=== PATIENT | male | born 1965 | race Caucasian/White ===

== ENCOUNTER 2017-08-11 12:36 | Inpatient (IN) | payer BC, OTHER ==
[2017-08-11] MEDS ORDERED: Diltiazem IV* 5 MG/ML 5 ML VIAL (for loading dose/IV Push) (25 MG) IV SLOW PU ONE (13:06)
[2017-08-11] MEDS: NS 0.9% 1000 ML* 2,000 ML IV ONE ×2 (13:13→14:02)
[2017-08-11 13:20] LABS: Hematocrit 43 % (42-52); Mean Corpuscular HGB Conc 35 g/dl (31-36); Mean Corpuscular Hemoglobin 36 pg (27-31); Mean Corpuscular Volume 102 fL (80-94); Mean Platelet Volume 7 um3 (7.4-10.4); Red Blood Count 4.22 10^6/ul (4.0-5.4); Red Cell Distribution Width 12 % (10.5-15); White Blood Count 6.6 10^3/ul (3.5-10.8)
[2017-08-11 13:30] LABS: Urine Bilirubin Negative (Negative); Urine Glucose Negative (Negative); Urine Nitrite Negative (Negative)
[2017-08-11 13:35] LABS: ALT 41 U/L (7-52); AST 97 U/L (13-39); Albumin 4.1 g/dL (3.2-5.2); Alkaline Phosphatase 63 U/L (34-104); Anion Gap 11 mmol/L (2-11); BUN/Creatinine Ratio 11.6 (8-20); Blood Urea Nitrogen 8 mg/dL (6-24); CO2 Carbon Dioxide 24 mmol/L (22-32); Calcium 9.3 mg/dL (8.6-10.3); Chloride 92 mmol/L (101-111); Creatine Kinase 37 U/L (10-223); EGFR African American 156.1 (>60); EGFR Non-African American 121.4 (>60); Globulin 4.1 g/dL (2-4); Glucose 95 mg/dL (70-100); Lipase 43 U/L (11.0-82.0); Magnesium 1.9 mg/dL (1.9-2.7); Potassium 3.8 mmol/L (3.5-5.0); Sodium 127 mmol/L (133-145); Total Protein 8.2 g/dL (6.4-8.9)
--- NOTE | 2017-08-11 13:37 | RAD ---
HISTORY: Tachycardia COMPARISONS: None VIEWS: 1: frontal portable view of the chest at 1:15 PM FINDINGS: LINES AND TUBES: None. CARDIOMEDIASTINAL SILHOUETTE: The cardiomediastinal silhouette is normal for portable technique. PLEURA: The costophrenic angles are sharp. No pleural abnormalities are noted. LUNG PARENCHYMA: The lungs are clear. ABDOMEN: The upper abdomen is clear. There is no subphrenic gas. BONES AND SOFT TISSUES: No bone or soft tissue abnormalities are noted. IMPRESSION: NO ACTIVE CARDIOPULMONARY DISEASE.
[2017-08-11 13:40] LABS: Acetaminophen < 15 mcg/mL; Alcohol 120 mg/dL (<10)
[2017-08-11 13:54] LABS: TSH (Thyroid Stimulating Horm) 4.24 mcIU/mL (0.34-5.60)
[2017-08-11] MEDS ORDERED: Magnesium Sulfate 2 GM IV* 2 GM/50 ML BAG IVPB ONE (14:29)
[2017-08-11] MEDS ORDERED: Potassium Chlor TAB* 20 MEQ TAB.ER PO ONE (14:29)
[2017-08-11] MEDS ORDERED: Thiamine IV* 100 MG/ML 2 ML VIAL IM ONE (14:43)
[2017-08-11] MEDS ORDERED: Acetaminophen TAB* 325 MG PO PRN (14:43)
[2017-08-11] MEDS ORDERED: Metoprolol Tartrate IV* 1 MG/ML 5 ML VIAL IV ONE (14:43)
[2017-08-11] MEDS ORDERED: LORazepam TAB(*) 1 MG PO SCH (15:00)
[2017-08-11] MEDS: NS 0.9% 1000 ML* 1,000 ML IV SCH (16:53)
[2017-08-11] MEDS: Metoprolol Tartrate TAB* 25 MG PO SCH ×2 (16:53→21:25)
--- NOTE | 2017-08-11 18:06 | ED ---
Chris Lund Angela, scribed for Juan Rousseau MD on 08/11/17 at 1308 . Palpitations / Dysrhythmia - HPI Summary HPI Summary: This pt is a 52 y/o male presenting to [facility] referred by his PCP for atrial fibrillation. Pt reports he was at his PCP's office (Dr. Jeffrey) for a physical exam and was noted to have atrial fibrillation. Additionally pt has had a couple of episodes in the past where he has passed out with activity. Pt has a history of multiple syncopal episodes, the last one was 1 week ago and the one prior that was on July 10, while on exertion. Today, pt got a tetanus shot on his right arm and began to have tremors after. Currently pt denies chest pain , light-headedness, SOB. Pt denies being on any medications. - History of Current Complaint Chief Complaint: EDDysrhythmPalp Time Seen by Provider: 08/11/17 12:55 Hx Obtained From: Patient Onset/Duration: Lasting Hours, Still Present Timing: Constant Severity Currently: Moderate Character: Irregular Associated Signs & Symptoms: Negative - Allergy/Home Medications Home Medications: Home Medications NK [No Home Medications Reported] 08/11/17 [History Confirmed 08/11/17] PMH/Surg Hx/FS Hx/Imm Hx Endocrine/Hematology History: Denies: Hx Diabetes Cardiovascular History: Denies: Hx Hypertension Psychiatric History: Reports: Hx Substance Abuse - alcohol Infectious Disease History: No Infectious Disease History: Denies: Traveled Outside the [place] in Last 30 Days - Family History Known Family History: Positive: Hypertension, Diabetes - Social History Alcohol Use: Daily Substance Use Type: Reports: None Smoking Status (MU): Heavy Every Day Tobacco Smoker Review of Systems Constitutional: Other - tremors Negative: Fever, Chills Cardiovascular: Other - atrial fibrillation Negative: Chest Pain Negative: Shortness Of Breath Neurological: Other - NEG: light-headedness All Other Systems Reviewed And Are Negative: Yes Physical Exam - Summary Physical Exam Summary: General: well-appearing, no pain distress Skin: warm, color reflects adequate perfusion, dry Head: normal Eyes: EOMI, SANJIV ENT: normal Neck: supple, nontender Respiratory: CTA, breath sounds present Cardiovascular: Tachycardic, irregularly irregular rhythm Abdomen: soft, nontender Bowel: present Musculoskeletal: normal, strength/ROM intact. Full body shaking with mild tremor. Neurological: normal, sensory/motor intact, A&O x3, appropriate Psychological: affect/mood appropriate Triage Information Reviewed: Yes Vital Signs On Initial Exam: Initial Vitals Temp Pulse Resp BP Pulse Ox 97.7 F 119 20 175/90 97 08/11/17 12:42 08/11/17 12:42 08/11/17 12:42 08/11/17 12:42 08/11/17 12:42 Vital Signs Reviewed: Yes Diagnostics - Vital Signs Vital Signs Temp Pulse Resp BP Pulse Ox 08/11/17 12:42 97.7 F 119 20 175/90 97 - Laboratory Lab Results: Lab Results 08/11/17 08/11/17 08/11/17 Range/Units 12:52 12:52 12:52 WBC (3.5-10.8) 10^3/ul RBC (4.0-5.4) 10^6/ul Hgb (14.0-18.0) g/dl Hct (42-52) % MCV (80-94) fL MCH (27-31) pg MCHC (31-36) g/dl RDW (10.5-15) % Plt Count (150-450) 10^3/ul MPV (7.4-10.4) um3 Neut % (Auto) (38-83) % Lymph % (Auto) (25-47) % [place] % (Auto) (1-9) % Eos % (Auto) (0-6) % Baso % (Auto) (0-2) % Absolute Neuts (auto) (1.5-7.7) 10^3/ul Absolute Lymphs (auto) (1.0-4.8) 10^3/ul Absolute Monos (auto) (0-0.8) 10^3/ul Absolute Eos (auto) (0-0.6) 10^3/ul Absolute Basos (auto) (0-0.2) 10^3/ul Absolute Nucleated RBC 10^3/ul Nucleated RBC % INR (Anticoag Therapy) 0.94 (0.77-1.02) APTT 32.7 (26.0-36.3) seconds D-Dimer, Quantitative < 200 (Less Than 230) ng/mL Sodium 127 L (133-145) mmol/L Potassium 3.8 (3.5-5.0) mmol/L Chloride 92 L (101-111) mmol/L Carbon Dioxide 24 (22-32) mmol/L Anion Gap 11 (2-11) mmol/L BUN 8 (6-24) mg/dL Creatinine 0.69 (0.67-1.17) mg/dL Est GFR ( Amer) 156.1 (>60) Est GFR (Non-Af Amer) 121.4 (>60) BUN/Creatinine Ratio 11.6 (8-20) Glucose 95 (70-100) mg/dL Lactic Acid (0.5-2.0) mmol/L Calcium 9.3 (8.6-10.3) mg/dL Magnesium 1.9 (1.9-2.7) mg/dL Total Bilirubin 1.10 H (0.2-1.0) mg/dL AST 97 H (13-39) U/L ALT 41 (7-52) U/L Alkaline Phosphatase 63 (34-104) U/L Ammonia (16-53) mol/L Total Creatine Kinase 37 (10-223) U/L CK-MB (CK-2) 1.2 (0.6-6.3) ng/mL Troponin I 0.00 (<0.04) ng/mL C-Reactive Protein 1.60 (< 5.00) mg/L B-Natriuretic Peptide 147 H ( - 100) pg/mL Total Protein 8.2 (6.4-8.9) g/dL Albumin 4.1 (3.2-5.2) g/dL Globulin 4.1 H (2-4) g/dL Albumin/Globulin Ratio 1.0 (1-3) Lipase 43 (11.0-82.0) U/L TSH 4.24 (0.34-5.60) mcIU/mL Urine Color Urine Appearance Urine pH (5-9) Ur Specific [place] (1.010-1.030) Urine Protein (Negative) Urine Ketones (Negative) Urine Blood (Negative) Urine Nitrate (Negative) Urine Bilirubin (Negative) Urine Urobilinogen (Negative) Ur Leukocyte Esterase (Negative) Urine Glucose (Negative) Acetaminophen < 15 mcg/mL Serum Alcohol 120 H (<10) mg/dL 12/11/17 12/11/17 12/11/17 Range/Units 12:52 12:52 12:52 WBC 6.6 (3.5-10.8) 10^3/ul RBC 4.22 (4.0-5.4) 10^6/ul Hgb 15.0 (14.0-18.0) g/dl Hct 43 (42-52) % MCV 102 H (80-94) fL MCH 36 H (27-31) pg MCHC 35 (31-36) g/dl RDW 12 (10.5-15) % Plt Count 183 (150-450) 10^3/ul MPV 7 L (7.4-10.4) um3 Neut % (Auto) 60.1 (38-83) % Lymph % (Auto) 20.3 L (25-47) % [place] % (Auto) 15.4 H (1-9) % Eos % (Auto) 2.3 (0-6) % Baso % (Auto) 1.9 (0-2) % Absolute Neuts (auto) 3.9 (1.5-7.7) 10^3/ul Absolute Lymphs (auto) 1.3 (1.0-4.8) 10^3/ul Absolute Monos (auto) 1.0 H (0-0.8) 10^3/ul Absolute Eos (auto) 0.1 (0-0.6) 10^3/ul Absolute Basos (auto) 0.1 (0-0.2) 10^3/ul Absolute Nucleated RBC 0.01 10^3/ul Nucleated RBC % 0.1 INR (Anticoag Therapy) (0.77-1.02) APTT (26.0-36.3) seconds D-Dimer, Quantitative (Less Than 230) ng/mL Sodium (133-145) mmol/L Potassium (3.5-5.0) mmol/L Chloride (101-111) mmol/L Carbon Dioxide (22-32) mmol/L Anion Gap (2-11) mmol/L BUN (6-24) mg/dL Creatinine (0.67-1.17) mg/dL Est GFR ( Amer) (>60) Est GFR (Non-Af Amer) (>60) BUN/Creatinine Ratio (8-20) Glucose (70-100) mg/dL Lactic Acid 1.8 (0.5-2.0) mmol/L Calcium (8.6-10.3) mg/dL Magnesium (1.9-2.7) mg/dL Total Bilirubin (0.2-1.0) mg/dL AST (13-39) U/L ALT (7-52) U/L Alkaline Phosphatase (34-104) U/L Ammonia (16-53) mol/L Total Creatine Kinase (10-223) U/L CK-MB (CK-2) (0.6-6.3) ng/mL Troponin I (<0.04) ng/mL C-Reactive Protein (< 5.00) mg/L B-Natriuretic Peptide ( - 100) pg/mL Total Protein (6.4-8.9) g/dL Albumin (3.2-5.2) g/dL Globulin (2-4) g/dL Albumin/Globulin Ratio (1-3) Lipase (11.0-82.0) U/L TSH (0.34-5.60) mcIU/mL Urine Color Straw Urine Appearance Clear Urine pH 6.0 (5-9) Ur Specific [place] 1.009 L (1.010-1.030) Urine Protein Negative (Negative) Urine Ketones Negative (Negative) Urine Blood Negative (Negative) Urine Nitrate Negative (Negative) Urine Bilirubin Negative (Negative) Urine Urobilinogen Negative (Negative) Ur Leukocyte Esterase Negative (Negative) Urine Glucose Negative (Negative) Acetaminophen mcg/mL Serum Alcohol (<10) mg/dL 08/11/17 Range/Units 13:48 WBC (3.5-10.8) 10^3/ul RBC (4.0-5.4) 10^6/ul Hgb (14.0-18.0) g/dl Hct (42-52) % MCV (80-94) fL MCH (27-31) pg MCHC (31-36) g/dl RDW (10.5-15) % Plt Count (150-450) 10^3/ul MPV (7.4-10.4) um3 Neut % (Auto) (38-83) % Lymph % (Auto) (25-47) % [place] % (Auto) (1-9) % Eos % (Auto) (0-6) % Baso % (Auto) (0-2) % Absolute Neuts (auto) (1.5-7.7) 10^3/ul Absolute Lymphs (auto) (1.0-4.8) 10^3/ul Absolute Monos (auto) (0-0.8) 10^3/ul Absolute Eos (auto) (0-0.6) 10^3/ul Absolute Basos (auto) (0-0.2) 10^3/ul Absolute Nucleated RBC 10^3/ul Nucleated RBC % INR (Anticoag Therapy) (0.77-1.02) APTT (26.0-36.3) seconds D-Dimer, Quantitative (Less Than 230) ng/mL Sodium (133-145) mmol/L Potassium (3.5-5.0) mmol/L Chloride (101-111) mmol/L Carbon Dioxide (22-32) mmol/L Anion Gap (2-11) mmol/L BUN (6-24) mg/dL Creatinine (0.67-1.17) mg/dL Est GFR ( Amer) (>60) Est GFR (Non-Af Amer) (>60) BUN/Creatinine Ratio (8-20) Glucose (70-100) mg/dL Lactic Acid (0.5-2.0) mmol/L Calcium (8.6-10.3) mg/dL Magnesium (1.9-2.7) mg/dL Total Bilirubin (0.2-1.0) mg/dL AST (13-39) U/L ALT (7-52) U/L Alkaline Phosphatase (34-104) U/L Ammonia 77 H (16-53) mol/L Total Creatine Kinase (10-223) U/L CK-MB (CK-2) (0.6-6.3) ng/mL Troponin I (<0.04) ng/mL C-Reactive Protein (< 5.00) mg/L B-Natriuretic Peptide ( - 100) pg/mL Total Protein (6.4-8.9) g/dL Albumin (3.2-5.2) g/dL Globulin (2-4) g/dL Albumin/Globulin Ratio (1-3) Lipase (11.0-82.0) U/L TSH (0.34-5.60) mcIU/mL Urine Color Urine Appearance Urine pH (5-9) Ur Specific [place] (1.010-1.030) Urine Protein (Negative) Urine Ketones (Negative) Urine Blood (Negative) Urine Nitrate (Negative) Urine Bilirubin (Negative) Urine Urobilinogen (Negative) Ur Leukocyte Esterase (Negative) Urine Glucose (Negative) Acetaminophen mcg/mL Serum Alcohol (<10) mg/dL Result Diagrams: 08/11/17 12:52 08/11/17 12:52 Lab Statement: Any lab studies that have been ordered have been reviewed, and results considered in the medical decision making process. - Radiology Chest XR Xray Interpretation: No Acute Changes - IMPRESSION: No active cardiopulmonary disease. Dr. Rousseau has reviewed this radiology report. Radiology Interpretation Completed By: Radiologist - EKG 1309 EKG Rhythm: Atrial Fibrillation - at [address] Segment: Normal Course/Dx - Course Course Of Treatment: Medications reviewed. Allergies noted. BP noted and advised to follow up with PCP. In the ED course, the pt was given IV fluids and IV cardizem. Test results show sodium of 127, AST of 97, BNP of 147. Urine toxicology reveals serum alcohol of 120. Chest XR shows no active cardiopulmonary disease. EKG shows atrial fibrillation at 118 bpm. Discussed the case with Dr. Padilla, hospitalist, who has agreed to admit the pt. NO CRITICAL CARE TIME. - Diagnoses Provider Diagnoses: Syncope, Afib - Physician Notifications Discussed Care Of Patient With: Lee Padilla Time Discussed With Above Provider: 13:53 Instructed by Provider To: Other - I discussed the pt's case with Dr. Padilla, who has agred to admit the pt. Discharge - Discharge Plan Condition: Stable Disposition: ADMITTED TO [facility] documentation as recorded by the Chris beckman Angela accurately reflects the service I personally performed and the decisions made by me, Juan Rousseau MD.
--- NOTE | 2017-08-11 18:52 | HP ---
HISTORY AND PHYSICAL: DATE OF ADMISSION: 08/11/17 PRIMARY CARE PROVIDER: Dr. Armando Jeffrey. ATTENDING PHYSICIAN: Dr. Charles Padilla * (dictated by Jahaira Honeycutt NP). CHIEF COMPLAINT: Sent by doctor's office for irregular heart rate, possibly new atrial fibrillation. HISTORY OF PRESENT ILLNESS: Mr. Jiang is a 52-year-old male with no significant past medical history, who presented to the emergency room from Dr. Jeffrey's office where he presented for a routine physical to establish primary care provider. At that appointment, he was noted to have an irregular heart rate and an EKG was performed showing an atrial fibrillation. The patient also received a tetanus shot, with which, reportedly, he developed upper body tremors afterwards. The patient denies any recent fever chills, chest pain, palpitations, cough, shortness of breath, nausea, vomiting, diarrhea. He reports intermittent dizziness. He denies urinary symptoms. Again, the stated tremors developed after he received a tetanus shot earlier today. The patient reports on 07/10/17, he had a syncopal episode at work. He noted on that day though he had not eaten any lunch and that he intermittently, for years, has had syncopal episodes with exertion. One week ago, with his father, at a , he became red in the face and collapsed. He denies loss of consciousness at that time. The patient states that his last alcoholic beverage was at 4:30 this morning. Again the patient presented to the emergency room from his primary care's office for concern for atrial fibrillation. While in the emergency room, the patient received diltiazem bolus and normal saline. He had labs significant for EtOH of 120 and magnesium of 1.9. His potassium was 3.8. He had a negative urinalysis. He had an EKG showing an atrial fibrillation, rate of 118. No previous EKGs for comparison. He had a chest x-ray showing no active cardiopulmonary disease. Hospitalists were asked to evaluate the patient for admission. PAST MEDICAL HISTORY: Syncope and alcohol abuse. PAST SURGICAL HISTORY: None. MEDICATIONS: None. ALLERGIES: He has no allergies. FAMILY HISTORY: The patient's father has a history of coronary artery disease and diabetes mellitus. The patient's sister with a history of coronary artery disease, peripheral vascular disease, cerebrovascular accident, and diabetes and the patient's mother had a history of diabetes mellitus and an unknown cancer. SOCIAL HISTORY: The patient denies tobacco or recreational drug use. He drinks 12 beers daily. 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 His brother, Serafin Jiang, will be his surrogate decision maker in the event he is unable to make decision for himself. REVIEW OF SYSTEMS: I performed a 14-point review of systems. All the pertinent positives and negatives are mentioned in the history of present illness. The remaining review of systems are negative. PHYSICAL EXAMINATION GENERAL APPEARANCE: The patient is alert, pleasant, and appears to be in no acute distress. VITAL SIGNS: Temperature 97.7, heart rate 99, respiratory rate 13, O2 sat 99% on room air, blood pressure 159/78. HEENT: Normocephalic, atraumatic. Pupils are equal and reactive to light. Extraocular movements are intact. RESPIRATORY: There is no accessory muscle use. The lungs are clear to auscultation bilaterally. CARDIOVASCULAR: Irregular rate and rhythm. S1, S2 present. There are no murmurs, rubs, or gallops heard. ABDOMEN: Soft, nontender, nondistended. There are bowel sounds present x4. EXTREMITIES: There is no lower extremity edema. DP and PT pulses were 2+ and symmetric. MUSCULOSKELETAL: There is no clubbing or cyanosis noted. The patient exhibits good strength in all extremities. The patient is noted to have tremors in his upper and lower extremities. NEUROLOGICAL: The patient is alert and oriented x4. Cranial nerves II through XII are grossly intact. PSYCHOLOGICAL: The patient is calm and cooperative. SKIN: There are no rashes or abnormalities seen. DIAGNOSTIC STUDIES/LABORATORY DATA: Sodium 127, potassium 3.8, chloride 92, CO2 of 24, BUN 8, creatinine 0.69, glucose 95. White blood cell count 6.6, hemoglobin 15.0, hematocrit 43, and platelet count 183. Serum alcohol 120, magnesium 1.9, total bilirubin 1.10, AST 97. Urinalysis is negative. EKG shows an atrial fibrillation with rate of 118. There were no acute signs of ischemia. There are no previous EKGs for comparison. Chest x-ray from today, radiologist's impression: No active cardiopulmonary disease. IMPRESSION: Mr. Jiang is a 52-year-old male with no significant past medical history, who presents to the emergency room from his primary care provider's office with atrial fibrillation. He will be admitted as an observation for atrial fibrillation and syncope. ASSESSMENT/PLAN: 1. Atrial fibrillation: It is unclear, if this is new or old for the patient as he has not followed up with a primary care provider in many years. He does not feel any chest pain or palpitations or racing of his heart. He received Cardizem bolus in the emergency room. His rate is currently in the 100s to one- teens. We can give the patient a bolus of IV metoprolol and then start him on p.o. metoprolol b.i.d. The patient has a CHADS-VASc2 score of 1 point for hypertension. He does not have a history of hypertension, but has been hypertensive while in the emergency room. For now, I am going to hold on any anticoagulation as the patient is at high risk for bleeding due to his history of syncope and falling. I am going to give the patient some magnesium and some potassium today to get him up to goal electrolytes of potassium greater than 4 and magnesium greater than 2, and after that I will get an EKG to evaluate for any valvular abnormalities. 2. Syncope: I am going to give the patient a liter of fluid overnight and then check an echocardiogram on him, do orthostatic vital signs. I suspect his syncopal episodes have been in the setting of dehydration. 3. Hypertension: The patient denies any history of hypertension. I have started him on metoprolol. We will hold on any further antihypertensives for now. 4. Alcohol abuse: The patient will be placed on the [facility] protocol. He reports drinking 12-pack a day. We will enter a social work consult to review his options for alcohol rehab if he is interested. 5. Fluids, electrolytes, and nutrition: Heart-healthy diet. 6. Code status: Full code. 7. DVT prophylaxis: The patient is at low risk and for now will be encouraged to ambulate. 8. Disposition: Observation. TIME SPENT: Time for this admission was approximately 60 minutes, greater than half of that was spent with the patient discussing medications, past medical history, the events leading up to his arrival today, and performing a physical examination. The case has been reviewed with the attending, Dr. Padilla, who agrees with the plan of care. JAHAIRA LEVI, STOCK FITTER [id number]/[facility] #: [id number] [facility] MEDICAL CENTERGregg
[2017-08-12] MEDS: NS 0.9% 1000 ML* 1,000 ML IV SCH (03:28)
[2017-08-12 06:05] LABS: BUN/Creatinine Ratio 10.9 (8-20); Blood Urea Nitrogen 7 mg/dL (6-24); CO2 Carbon Dioxide 25 mmol/L (22-32); Calcium 9.3 mg/dL (8.6-10.3); Chloride 91 mmol/L (101-111); EGFR African American 170.2 (>60); EGFR Non-African American 132.4 (>60); Glucose 86 mg/dL (70-100); Magnesium 2.2 mg/dL (1.9-2.7); Sodium 125 mmol/L (133-145)
[2017-08-12 06:08] LABS: Anion Gap 9 mmol/L (2-11)
[2017-08-12] MEDS: Metoprolol Tartrate TAB* 25 MG PO SCH (08:35)
[2017-08-12] MEDS: Folic Acid TAB* 1 MG PO SCH (08:37)
[2017-08-12] MEDS: Multivitamins/Minerals TAB PO SCH (08:37)
[2017-08-12] MEDS: Thiamine TAB* 100 MG TAB PO SCH (08:38)
[2017-08-12] MEDS ORDERED: Metoprolol Tartrate IV* 1 MG/ML 5 ML VIAL IV ONE (08:45)
[2017-08-12] MEDS: Metoprolol Tartrate TAB* 50 mg PO SCH ×2 (08:52→21:34)
--- NOTE | 2017-08-12 10:24 | PN ---
Subjective Date of Service: 08/12/17 Interval History: This is a 52 yo male with alcoholism who was referred to the ER from his PCP's office in rapid afib. Patient reports being asymptomatic. He was tremulous and admitted with new afib and acute alcohol withdrawal. This am, patient continues to deny CP, SOB, palpitations. He is still tremulous , no n/v or abd pain. He is interested in maintaining sobriety and would like to enroll in outpatient rehab following discharge. Objective Active Medications: Acetaminophen (Tylenol Tab*) 650 mg PO Q4H PRN PRN Reason: PAIN Folic Acid (Folvite Tab*) 1 mg PO DAILY [facility] Last Admin: 08/12/17 08:37 Dose: 1 mg Lorazepam (Ativan Tab(*)) 0 - [address] [facility] PROTOCOL [facility] PRN Reason: Protocol Last Admin: 08/11/17 21:52 Dose: 2 mg Metoprolol Tartrate (Lopressor Tab*) 50 mg PO BID [facility] Last Admin: 08/12/17 08:52 Dose: 50 mg Multivitamins/Minerals (Theragran/Minerals Tab*) 1 tab PO DAILY [facility] Last Admin: 08/12/17 08:37 Dose: 1 tab Nicotine Polacrilex (Nicotine Lozenge*) 4 mg MT Q2H PRN PRN Reason: CRAVINGS Thiamine HCl (Vitamin B-1 Tab*) 100 mg PO DAILY [facility] Last Admin: 08/12/17 08:38 Dose: 100 mg Vital Signs: Temp Pulse Resp BP Pulse Ox 98.4 F 95 16 138/92 100 08/12/17 07:39 08/12/17 07:39 08/12/17 08:00 08/12/17 07:39 08/12/17 07:39 Oxygen Devices in Use Now: None Appearance: Mildly tremulous 52 yo male in NAD Respiratory: Symmetrical Chest Expansion and Respiratory Effort, Clear to Auscultation Cardiovascular: NL Sounds; No Murmurs; No JVD, - - irregular Abdominal: NL Sounds; No Tenderness; No Distention Extremities: No Edema Skin: No Rash or Ulcers Neurological: Alert and Oriented x 3 Result Diagrams: 08/11/17 12:52 08/12/17 08:34 Additional Lab and Data: . Assess/Plan/Problems-Billing Assessment: This is a 52 yo male with alcoholism who presented with rapid afib and active withdrawal. - Patient Problems (1) Atrial fibrillation Comment: Resonably rate controlled, occasionally requiring IV push AV florentin blockers Echo pending Anticoagulation initially held, but patient is committed to sobriety, recommend starting NOAC at least in the short-term (2) Alcohol withdrawal Comment: Cont W[facility] protocol and prn lorazepam Mild tremulousness at this time, otherwise relatively asx Patient is interested in outpt treatment following dc SW consult pending (3) Hyponatremia Comment: Likely due to ETOH Asx Repeat BMP tomorrow (4) Full code status (5) DVT prophylaxis Comment: Start Xarelto Status and Disposition: Transition to inpatient. Anticipate 3-4d LOS to complete withdrawal.
--- NOTE | 2017-08-12 12:14 | PN ---
Progress Note - Progress Note Date of Service: 08/12/17 SOAP: Subjective: Mr. Garcia is a 52 yo male with a history of alcohol abuse and two recent syncopal episodes who presented to the ED from his PCP's office d/t an irregular heart rhythm and a new onset of tremors after receiving a tetanus shot. The patient was admitted for telemetry monitoring and rate control for Afib, as well as management of alcohol withdrawal. Today, the patient seems to be doing well and denies any symptoms. Denies CP, palpitations, chest pressure or tightness, SOB, wheezing, coughing, abdominal pain, N/V/D, and tremors. Objective: Vital Signs Temp Pulse Resp BP Pulse Ox 98.9 F 93 14 140/93 100 08/12/17 10:02 08/12/17 10:02 08/12/17 10:02 08/12/17 10:02 08/12/17 10:02 Laboratory Last Values WBC 6.6 10^3/ul (3.5-10.8) 08/11/17 12:52 RBC 4.22 10^6/ul (4.0-5.4) 08/11/17 12:52 Hgb 15.0 g/dl (14.0-18.0) 08/11/17 12:52 Hct 43 % (42-52) 08/11/17 12:52 MCV 102 fL (80-94) H 08/11/17 12:52 MCH 36 pg (27-31) H 08/11/17 12:52 MCHC 35 g/dl (31-36) 08/11/17 12:52 RDW 12 % (10.5-15) 08/11/17 12:52 Plt Count 183 10^3/ul (150-450) 08/11/17 12:52 MPV 7 um3 (7.4-10.4) L 08/11/17 12:52 Neut % (Auto) 60.1 % (38-83) 08/11/17 12:52 Lymph % (Auto) 20.3 % (25-47) L 08/11/17 12:52 [place] % (Auto) 15.4 % (1-9) H 08/11/17 12:52 Eos % (Auto) 2.3 % (0-6) 08/11/17 12:52 Baso % (Auto) 1.9 % (0-2) 08/11/17 12:52 Absolute Neuts (auto) 3.9 10^3/ul (1.5-7.7) 08/11/17 12:52 Absolute Lymphs (auto) 1.3 10^3/ul (1.0-4.8) 08/11/17 12:52 Absolute Monos (auto) 1.0 10^3/ul (0-0.8) H 08/11/17 12:52 Absolute Eos (auto) 0.1 10^3/ul (0-0.6) 08/11/17 12:52 Absolute Basos (auto) 0.1 10^3/ul (0-0.2) 08/11/17 12:52 Absolute Nucleated RBC 0.01 10^3/ul 08/11/17 12:52 Nucleated RBC % 0.1 08/11/17 12:52 INR (Anticoag Therapy) 0.94 (0.77-1.02) 08/11/17 12:52 APTT 32.7 seconds (26.0-36.3) 08/11/17 12:52 D-Dimer, Quantitative < 200 ng/mL (Less Than 230) 08/11/17 12:52 Sodium 125 mmol/L (133-145) L 08/12/17 05:03 Potassium 4.5 mmol/L (3.5-5.0) 08/12/17 08:34 Chloride 91 mmol/L (101-111) L 08/12/17 05:03 Carbon Dioxide 25 mmol/L (22-32) 08/12/17 05:03 Anion Gap 9 mmol/L (2-11) 08/12/17 05:03 BUN 7 mg/dL (6-24) 08/12/17 05:03 Creatinine 0.64 mg/dL (0.67-1.17) L 08/12/17 05:03 Est GFR ( Amer) 170.2 (>60) 08/12/17 05:03 Est GFR (Non-Af Amer) 132.4 (>60) 08/12/17 05:03 BUN/Creatinine Ratio 10.9 (8-20) 08/12/17 05:03 Glucose 86 mg/dL (70-100) 08/12/17 05:03 Lactic Acid 1.8 mmol/L (0.5-2.0) 08/11/17 12:52 Calcium 9.3 mg/dL (8.6-10.3) 08/12/17 05:03 Magnesium 2.2 mg/dL (1.9-2.7) 08/12/17 05:03 Total Bilirubin 1.10 mg/dL (0.2-1.0) H 08/11/17 12:52 AST 97 U/L (13-39) H 08/11/17 12:52 ALT 41 U/L (7-52) 08/11/17 12:52 Alkaline Phosphatase 63 U/L (34-104) 08/11/17 12:52 Ammonia 77 mol/L (16-53) H 08/11/17 13:48 Total Creatine Kinase 37 U/L (10-223) 08/11/17 12:52 CK-MB (CK-2) 1.2 ng/mL (0.6-6.3) 08/11/17 12:52 Troponin I 0.00 ng/mL (<0.04) 08/11/17 12:52 C-Reactive Protein 1.60 mg/L (< 5.00) 08/11/17 12:52 B-Natriuretic Peptide 147 pg/mL (-100) H 08/11/17 12:52 Total Protein 8.2 g/dL (6.4-8.9) 08/11/17 12:52 Albumin 4.1 g/dL (3.2-5.2) 08/11/17 12:52 Globulin 4.1 g/dL (2-4) H 08/11/17 12:52 Albumin/Globulin Ratio 1.0 (1-3) 08/11/17 12:52 Lipase 43 U/L (11.0-82.0) 08/11/17 12:52 TSH 4.24 mcIU/mL (0.34-5.60) 08/11/17 12:52 Urine Color Straw 08/11/17 12:52 Urine Appearance Clear 08/11/17 12:52 Urine pH 6.0 (5-9) 08/11/17 12:52 Ur Specific [place] 1.009 (1.010-1.030) L 08/11/17 12:52 Urine Protein Negative (Negative) 08/11/17 12:52 Urine Ketones Negative (Negative) 08/11/17 12:52 Urine Blood Negative (Negative) 08/11/17 12:52 Urine Nitrate Negative (Negative) 08/11/17 12:52 Urine Bilirubin Negative (Negative) 08/11/17 12:52 Urine Urobilinogen Negative (Negative) 08/11/17 12:52 Ur Leukocyte Esterase Negative (Negative) 08/11/17 12:52 Urine Glucose Negative (Negative) 08/11/17 12:52 Acetaminophen < 15 mcg/mL 08/11/17 12:52 Serum Alcohol 120 mg/dL (<10) H 08/11/17 12:52 Active Medications Acetaminophen (Tylenol Tab*) 650 mg PO Q4H PRN PRN Reason: PAIN Folic Acid (Folvite Tab*) 1 mg PO DAILY [facility] Last Admin: 08/12/17 08:37 Dose: 1 mg Lorazepam (Ativan Tab(*)) 0 - 6 mg PO .PER [facility] PROTOCOL [facility] PRN Reason: Protocol Last Admin: 08/11/17 21:52 Dose: 2 mg Metoprolol Tartrate (Lopressor Tab*) 50 mg PO BID [facility] Last Admin: 08/12/17 08:52 Dose: 50 mg Multivitamins/Minerals (Theragran/Minerals Tab*) 1 tab PO DAILY [facility] Last Admin: 08/12/17 08:37 Dose: 1 tab Nicotine Polacrilex (Nicotine Lozenge*) 4 mg MT Q2H PRN PRN Reason: CRAVINGS Rivaroxaban (Xarelto (*)) 20 mg PO DAILY [facility] Thiamine HCl (Vitamin B-1 Tab*) 100 mg PO DAILY [facility] Last Admin: 08/12/17 08:38 Dose: 100 mg General: WDWN male in NAD. HEENT: Moist and pink mucous membranes. CV: Regular rate, irregular rhythm, w/o MRG. Respiratory: CTA BL w/o RRW. GI: Abdomen is soft, non-distended and non-tender to palpation. Extremities: w/o edema Assessment: This is a 52 yo male with a history of alcohol abuse who has been admitted for rate control of atrial fibrillation and management of acute alcohol withdrawal. Plan: 1. Atrial Fibrillation: Rate is controlled with Lopressor. High risk patient for anticoagulation therapy d/t ETOH use and history of syncopal episodes. 2. Alcohol withdrawal: Ativan as needed, SW consult for outpatient rehab. 3. DVT Prophylaxis: Xarelto Disposition: Alcohol withdrawal treatment to be completed within 2-3 days.
[2017-08-12] MEDS: Rivaroxaban TAB(*) 20 MG TAB PO SCH (12:33)
--- NOTE | 2017-08-12 15:33 | ECHO ---
Patient: MERCEDES BAUTISTA [facility] Rec#: [id number] : 1965 Date: 08/12/2017 Age: 52y Height: 177.8 cm / 70.0 in Weight: 73 kg / 160.9 lbs Sex: M BSA: 1.9 Room#: [facility] Admit Date#: 08/11/2017 Type: Inpatient Referring: Camryn Smith NP Reading: Ambrosio Lea MD Boarding Room Fixer: Jody Kuo RN RDCS CC: Armando Jeffrey MD Transthoracic Echocardiogram Indication: Atrial fibrillation, syncope BP: 143/74 HR: 95 Rhythm: A-Fib Findings History: ETOH abuse, syncope Technical Comments: The study quality is fair. Completed at 0840. Left Ventricle: The left ventricular chamber size is normal. Mild concentric left ventricular hypertrophy is observed. Global left ventricular wall motion and contractility are within normal limits. Left ventricular systolic function is at the lower limits of normal. The estimated ejection fraction is 50-55%. The assessment of diastolic function is non-diagnostic. Left Atrium: The left atrial chamber size is normal. Right Ventricle: The right ventricle wall thickness is mildly increased. The right ventricular cavity size is normal. The right ventricular global systolic function is low normal. Right Atrium: The right atrial cavity size is normal. Aortic Valve: The aortic valve is trileaflet. The aortic valve leaflets are mildly thickened. There is no evidence of aortic regurgitation. There is no evidence of aortic stenosis. Mitral Valve: The mitral valve leaflets are mildly thickened. There is trace to mild mitral regurgitation. There is no evidence of mitral stenosis. Tricuspid Valve: The tricuspid valve leaflets are normal. There is trace tricuspid regurgitation. No pulmonary hypertension is noted. There is no tricuspid stenosis. Pulmonic Valve: The pulmonic valve appears normal. There is a trace pulmonic regurgitation. There is no pulmonic stenosis. Pericardium: There is no significant pericardial effusion. Aorta: There is no dilatation of the ascending aorta. The aortic arch is not well visualized. There is no dilation of the aortic root. Pulmonary Artery: The main pulmonary artery appears normal. Venous: The venous system is not well visualized. The inferior vena cava is not visualized. Conclusions Global left ventricular wall motion and contractility are within normal limits. Left ventricular systolic function is at the lower limits of normal. The estimated ejection fraction is 50-55%. The right ventricular global systolic function is low normal. There is no evidence of aortic stenosis. There is trace to mild mitral regurgitation. There is trace tricuspid regurgitation. No pulmonary hypertension is noted. There is no significant pericardial effusion. Measurements Name Value Normal Range RVDdMajor (2D) 3.5 cm (2.2 - 4.4) RVAW (2D) 0.8 cm (0.2 - 0.5) RAd ISD 4CH 4.7 cm (3.4 - 4.9) RA (A4C)W 4 cm (2.9 - 4.6) IVSd (2D) 1.2 cm (0.6 - 1) LVPWd (2D) 1.1 cm (0.6 - 1) LVIDd (2D) 4 cm (3.6 - 5.4) LVIDs (2D) 3 cm - LV FS (2D) 25 % (25 - 45) Aortic Annulus 2.1 cm (1.4 - 2.6) Ao root diameter (2D) 3.5 cm (2.1 - 3.5) Ascending Ao 3.4 cm (2.1 - 3.4) LA dimension (AP) 2D 3.5 cm (2.3 - 3.8) LAd ISD 4CH 5.1 cm (2.9 - 5.3) LA ISD 4CH W 4.3 cm (2.5 - 4.5) Name Value Normal Range LA ESV SP 4CH (A/L) 52 ml - LA ESV SP 2CH (A/L) 30 ml - LA ESV BP (A/L) 41 ml - LA ESV BP (A/L) index 21.7 ml/m2 - LA ESV SP 4CH (MOD) 49 ml - LA ESV SP 2CH (MOD) 29 ml - Name Value Normal Range MV E-wave Vmax 1.2 m/sec - MV deceleration time 111 msec - LV septal e' Vmax 0.09 m/sec - LV lateral e' Vmax 0.13 m/sec - LV E:e' septal ratio 13.3 ratio - LV E:e' lateral ratio 9.2 ratio - Name Value Normal Range AV Vmax 0.9 m/sec - AV VTI 15 cm - AV peak gradient 3.3 mmHg - AV mean gradient 1.9 mmHg - LVOT Vmax 0.91 m/sec - LVOT VTI 14.6 cm - LVOT peak gradient 3.3 mmHg - LVOT mean gradient 1.4 mmHg - Name Value Normal Range TR Vmax 2.2 m/sec - TR peak gradient 19 mmHg - RAP 8 mmHg - RVSP 27 mmHg - Name Value Normal Range PV Vmax 0.62 m/sec -
[2017-08-13 06:54] LABS: BUN/Creatinine Ratio 12.3 (8-20); Calcium 10.1 mg/dL (8.6-10.3); EGFR African American 167.2 (>60)
[2017-08-13] MEDS: Rivaroxaban TAB(*) 20 MG TAB PO SCH (08:33)
[2017-08-13] MEDS: Folic Acid TAB* 1 MG PO SCH (08:33)
[2017-08-13] MEDS: Metoprolol Tartrate TAB* 50 mg PO SCH ×2 (08:33→20:59)
[2017-08-13] MEDS: Multivitamins/Minerals TAB PO SCH (08:33)
[2017-08-13] MEDS: Thiamine TAB* 100 MG TAB PO SCH (08:33)
[2017-08-13] MEDS ORDERED: Pneumococcal *Vac Polyvalent 0.5 ML VIAL IM ONE (09:00)
--- NOTE | 2017-08-13 10:42 | PN ---
Progress Note - Progress Note Date of Service: 08/13/17 SOAP: Subjective: Mr. Garcia is a 52 yo male who has a history of alcohol abuse who came from his PCP's office d/t atrial fibrillation w/ RVR as well as tremors after receiving a tetanus shot. Today, patient states he feels well and expressed that he is eager to get out of the hospital. Patient denies all symptoms. Denies CP, palpitations, SOB, coughing, wheezing, abdominal pain, N/V/ D, tremors or anxiety. Objective: Vital Signs Temp Pulse Resp BP Pulse Ox 98.1 F 96 20 122/82 100 08/13/17 09:36 08/13/17 09:36 08/13/17 09:36 08/13/17 09:36 08/13/17 09:36 Laboratory Last Values WBC 6.6 10^3/ul (3.5-10.8) 08/11/17 12:52 RBC 4.22 10^6/ul (4.0-5.4) 08/11/17 12:52 Hgb 15.0 g/dl (14.0-18.0) 08/11/17 12:52 Hct 43 % (42-52) 08/11/17 12:52 MCV 102 fL (80-94) H 08/11/17 12:52 MCH 36 pg (27-31) H 08/11/17 12:52 MCHC 35 g/dl (31-36) 08/11/17 12:52 RDW 12 % (10.5-15) 08/11/17 12:52 Plt Count 183 10^3/ul (150-450) 08/11/17 12:52 MPV 7 um3 (7.4-10.4) L 08/11/17 12:52 Neut % (Auto) 60.1 % (38-83) 08/11/17 12:52 Lymph % (Auto) 20.3 % (25-47) L 08/11/17 12:52 [place] % (Auto) 15.4 % (1-9) H 08/11/17 12:52 Eos % (Auto) 2.3 % (0-6) 08/11/17 12:52 Baso % (Auto) 1.9 % (0-2) 08/11/17 12:52 Absolute Neuts (auto) 3.9 10^3/ul (1.5-7.7) 08/11/17 12:52 Absolute Lymphs (auto) 1.3 10^3/ul (1.0-4.8) 08/11/17 12:52 Absolute Monos (auto) 1.0 10^3/ul (0-0.8) H 08/11/17 12:52 Absolute Eos (auto) 0.1 10^3/ul (0-0.6) 08/11/17 12:52 Absolute Basos (auto) 0.1 10^3/ul (0-0.2) 08/11/17 12:52 Absolute Nucleated RBC 0.01 10^3/ul 08/11/17 12:52 Nucleated RBC % 0.1 08/11/17 12:52 INR (Anticoag Therapy) 0.94 (0.77-1.02) 08/11/17 12:52 APTT 32.7 seconds (26.0-36.3) 08/11/17 12:52 D-Dimer, Quantitative < 200 ng/mL (Less Than 230) 08/11/17 12:52 Sodium 125 mmol/L (133-145) L 08/13/17 05:43 Potassium 4.0 mmol/L (3.5-5.0) 08/13/17 05:43 Chloride 93 mmol/L (101-111) L 08/13/17 05:43 Carbon Dioxide 24 mmol/L (22-32) 08/13/17 05:43 Anion Gap 8 mmol/L (2-11) 08/13/17 05:43 BUN 8 mg/dL (6-24) 08/13/17 05:43 Creatinine 0.65 mg/dL (0.67-1.17) L 08/13/17 05:43 Est GFR ( Amer) 167.2 (>60) 08/13/17 05:43 Est GFR (Non-Af Amer) 130.0 (>60) 08/13/17 05:43 BUN/Creatinine Ratio 12.3 (8-20) 08/13/17 05:43 Glucose 94 mg/dL (70-100) 08/13/17 05:43 Lactic Acid 1.8 mmol/L (0.5-2.0) 08/11/17 12:52 Calcium 10.1 mg/dL (8.6-10.3) 08/13/17 05:43 Magnesium 2.0 mg/dL (1.9-2.7) 08/13/17 05:43 Total Bilirubin 1.10 mg/dL (0.2-1.0) H 08/11/17 12:52 AST 97 U/L (13-39) H 08/11/17 12:52 ALT 41 U/L (7-52) 08/11/17 12:52 Alkaline Phosphatase 63 U/L (34-104) 08/11/17 12:52 Ammonia 77 mol/L (16-53) H 08/11/17 13:48 Total Creatine Kinase 37 U/L (10-223) 08/11/17 12:52 CK-MB (CK-2) 1.2 ng/mL (0.6-6.3) 08/11/17 12:52 Troponin I 0.00 ng/mL (<0.04) 08/11/17 12:52 C-Reactive Protein 1.60 mg/L (< 5.00) 08/11/17 12:52 B-Natriuretic Peptide 147 pg/mL (-100) H 08/11/17 12:52 Total Protein 8.2 g/dL (6.4-8.9) 08/11/17 12:52 Albumin 4.1 g/dL (3.2-5.2) 08/11/17 12:52 Globulin 4.1 g/dL (2-4) H 08/11/17 12:52 Albumin/Globulin Ratio 1.0 (1-3) 08/11/17 12:52 Lipase 43 U/L (11.0-82.0) 08/11/17 12:52 TSH 4.24 mcIU/mL (0.34-5.60) 08/11/17 12:52 Urine Color Straw 08/11/17 12:52 Urine Appearance Clear 08/11/17 12:52 Urine pH 6.0 (5-9) 08/11/17 12:52 Ur Specific [place] 1.009 (1.010-1.030) L 08/11/17 12:52 Urine Protein Negative (Negative) 08/11/17 12:52 Urine Ketones Negative (Negative) 08/11/17 12:52 Urine Blood Negative (Negative) 08/11/17 12:52 Urine Nitrate Negative (Negative) 08/11/17 12:52 Urine Bilirubin Negative (Negative) 08/11/17 12:52 Urine Urobilinogen Negative (Negative) 08/11/17 12:52 Ur Leukocyte Esterase Negative (Negative) 08/11/17 12:52 Urine Glucose Negative (Negative) 08/11/17 12:52 Acetaminophen < 15 mcg/mL 08/11/17 12:52 Serum Alcohol 120 mg/dL (<10) H 08/11/17 12:52 Active Medications Acetaminophen (Tylenol Tab*) 650 mg PO Q4H PRN PRN Reason: PAIN Folic Acid (Folvite Tab*) 1 mg PO DAILY [facility] Last Admin: 08/13/17 08:33 Dose: 1 mg Lorazepam (Ativan Tab(*)) 0 - 6 mg PO .PER [facility] PROTOCOL [facility] PRN Reason: Protocol Last Admin: 08/11/17 21:52 Dose: 2 mg Metoprolol Tartrate (Lopressor Tab*) 50 mg PO BID [facility] Last Admin: 08/13/17 08:33 Dose: 50 mg Multivitamins/Minerals (Theragran/Minerals Tab*) 1 tab PO DAILY [facility] Last Admin: 08/13/17 08:33 Dose: 1 tab Nicotine Polacrilex (Nicotine Lozenge*) 4 mg MT Q2H PRN PRN Reason: CRAVINGS Rivaroxaban (Xarelto (*)) 20 mg PO DAILY [facility] Last Admin: 08/13/17 08:33 Dose: 20 mg Thiamine HCl (Vitamin B-1 Tab*) 100 mg PO DAILY [facility] Last Admin: 08/13/17 08:33 Dose: 100 mg General: WDWN male in NAD. HEENT: Moist and pink mucous membranes. CV: Irregular rhythm, regular rate w/o MRG. Respiratory: CTA BL w/o RRW. GI: Abdomen is soft, non-distended, and non-tender to palpation. Extremities: W/o edema. Assessment: This is a 52 yo male with a history of alcohol abuse who was admitted for Afib w/ RVR and management of acute alcohol withdrawal. [] Plan: 1. Atrial Fibrillation: Rate is controlled with Lopressor, in the 80s. As for anticoagulation therapy, the risks and benefits were discussed with the patient , and at this time, patient is interested in maintaining sobriety. Xarelto has been initiated. 2. Acute Alcohol Withdrawal: Ativan as needed, continue to monitor symptoms. Patient is asymptomatic at this time. 3. Hyponatremia: Still hyponatremic (125) today, however, asymptomatic. Continue to monitor. Disposition: Patient will likely be discharged in 1-2 days.
--- NOTE | 2017-08-13 11:35 | PN ---
Subjective Date of Service: 08/13/17 Interval History: Patient reports feeling well. His tremulousness has improved. No n/v. Appetite good. No CP, SOB, palpitations. Objective Active Medications: Acetaminophen (Tylenol Tab*) 650 mg PO Q4H PRN PRN Reason: PAIN Folic Acid (Folvite Tab*) 1 mg PO DAILY [facility] Last Admin: 08/13/17 08:33 Dose: 1 mg Lorazepam (Ativan Tab(*)) 0 - 6 mg PO .PER [facility] PROTOCOL [facility] PRN Reason: Protocol Last Admin: 08/11/17 21:52 Dose: 2 mg Metoprolol Tartrate (Lopressor Tab*) 50 mg PO BID [facility] Last Admin: 08/13/17 08:33 Dose: 50 mg Multivitamins/Minerals (Theragran/Minerals Tab*) 1 tab PO DAILY [facility] Last Admin: 08/13/17 08:33 Dose: 1 tab Nicotine Polacrilex (Nicotine Lozenge*) 4 mg MT Q2H PRN PRN Reason: CRAVINGS Rivaroxaban (Xarelto (*)) 20 mg PO DAILY [facility] Last Admin: 08/13/17 08:33 Dose: 20 mg Thiamine HCl (Vitamin B-1 Tab*) 100 mg PO DAILY [facility] Last Admin: 08/13/17 08:33 Dose: 100 mg Vital Signs: Temp Pulse Resp BP Pulse Ox 98.6 F 92 14 134/100 100 08/13/17 11:06 08/13/17 11:06 08/13/17 11:06 08/13/17 11:06 08/13/17 11:06 Oxygen Devices in Use Now: None Appearance: Well appearing, in NAD Respiratory: Symmetrical Chest Expansion and Respiratory Effort, Clear to Auscultation Cardiovascular: NL Sounds; No Murmurs; No JVD, - - irregular Extremities: No Edema Skin: No Rash or Ulcers Neurological: Alert and Oriented x 3, - - no tremor noted Result Diagrams: 08/11/17 12:52 08/13/17 05:43 Additional Lab and Data: . Assess/Plan/Problems-Billing Assessment: This is a 52 yo male with alcoholism who presented with rapid afib and active withdrawal. - Patient Problems (1) Atrial fibrillation Comment: Initial RVR Now rate controlled Asx Echo WNL Anticoagulation initially held, but patient is committed to sobriety, started Xarelto (2) Alcohol withdrawal Comment: Cont WAM protocol and prn lorazepam No benzos in ~24hrs Patient is interested in outpt treatment following dc SW consult pending (3) Hyponatremia Comment: Likely due to ETOH Asx Repeat BMP again tomorrow (4) Full code status (5) DVT prophylaxis Comment: Start Xarelto Status and Disposition: Transition to inpatient. Anticipate possible dc tomorrow if he remains asx overnight
[2017-08-13] MEDS: Nicotine Lozenge* 4 MG LOZENGE MT PRN ×2 (13:33→21:07)
[2017-08-14] MEDS: Thiamine TAB* 100 MG TAB PO SCH (07:50)
[2017-08-14] MEDS: Metoprolol Tartrate TAB* 50 mg PO SCH (07:50)
[2017-08-14] MEDS: Rivaroxaban TAB(*) 20 MG TAB PO SCH (07:50)
[2017-08-14] MEDS: Folic Acid TAB* 1 MG PO SCH (07:50)
[2017-08-14] MEDS: Multivitamins/Minerals TAB PO SCH (07:50)
[2017-08-14 14:14] VITALS: BP 113/79
--- NOTE | 2017-08-14 14:16 | PN ---
Progress Note - Progress Note Date of Service: 08/14/17 Note: Time spent on discharge 50 minutes.
--- NOTE | 2017-08-14 23:35 | DS ---
CC: Dr. Jeffrey * DISCHARGE SUMMARY: DATE OF ADMISSION: 08/12/17 DATE OF DISCHARGE: 08/14/17 HOSPITAL COURSE: This 52-year-old man went to Dr. Jeffrey's office for routine physical to establish himself there. He was found to be in atrial fibrillation with a rapid rate. He received a tetanus vaccine. The patient also gave a history of excessive drinking. His alcohol level was 120 on arrival at the emergency room. He was in atrial fibrillation with rapid rate. He was given beta-blockers. He had an echocardiogram, which showed ejection fraction of 50% to 55%. There was mild concentric left ventricular hypertrophy. There was trace to mild mitral regurgitation. The patient was given benzodiazepines as needed to help with alcohol withdrawal. He did have chemical evidence of alcoholic liver disease, perhaps an advanced stage with an ammonia level of 77, this was not repeated. His mental status was normal. His AST was 97, this was not repeated either. ALT was 41, which was normal. Total bilirubin 1.10, minimally elevated. Sodium was 125, he had 3 measurements of these, which ranged from 125 to 127. His TSH on 08/11/17 was within normal limits. The patient remained in atrial fibrillation. He scored 1 on the CHADS2-VASc score which would be an indication for anticoagulation. He will be started on rivaroxaban. If he remains sober for significant period of time and converts to normal sinus rhythm , it may be worth seeing if he maintains normal sinus rhythm as an outpatient on long-term monitoring and consider stopping his cardiac meds and anticoagulation. However, it is fairly likely he will need to be on these medications indefinitely. FINAL DIAGNOSES: 1. Acute on chronic alcoholism with alcoholic liver disease. 2. Atrial fibrillation. 3. Hyponatremia. The patient was advised to limit his liquid intake to 60 ounces per day. DISCHARGE MEDICATIONS: 1. Acetaminophen 650 mg every 4 hours p.r.n. 2. Metoprolol tartrate 50 mg b.i.d. 3. Rivaroxaban 20 mg daily. 4. Thiamine 100 mg daily. [id number]/[facility] #: [id number] [facility]
== END 2017-08-14 15:14 | disposition home or self-care (01) | DRG 201 ==
LOC: ED 12:36 → OBSVTOIN 14:27 → INTOOBSV 14:27 → MEDTELE 14:27 → OBSVTOIN 08-12 10:15
PROVIDERS: ADMIT Internal Medicine; ATTEND Internal Medicine
DX: I48.91 Unspecified atrial fibrillation (principal); F10.239 Alcohol dependence with withdrawal, unspecified; E87.1 Hypo-osmolality and hyponatremia; K70.9 Alcoholic liver disease, unspecified; Y90.6 Blood alcohol level of 120-199 mg/100 ml; F17.210 Nicotine dependence, cigarettes, uncomplicated; I10 Essential (primary) hypertension; I51.7 Cardiomegaly; I34.0 Nonrheumatic mitral (valve) insufficiency; Z79.01 Long term (current) use of anticoagulants; Z82.49 Family history of ischemic heart disease and other diseases of the circulatory system; Z83.3 Family history of diabetes mellitus; Z82.3 Family history of stroke; Z23 Encounter for immunization
CPT/HCPCS: 36415; 71010; 80048; 80053; 80320; 80329; 81003; 82140; 82550; 82553; 83605; 83690; 83735; 83880; 84443; 84484; 85025; 85379; 85610; 85730; 86140; 90732; 93005; 93306; 99406; A9270-GY; G0378; G0480; J3411; J3475; J3490

== ENCOUNTER 2017-10-20 07:39 | Day surgery (SDC) | payer BC ==
[~2017-10-20 07:39] MED LIST: Acetaminophen TAB* 325 MG PO PRN; Buffered Lidocaine 0.9% SYRIN* 5 ML/SYR SYRINGE INTRADERM ONE
[2017-10-20] MEDS ORDERED: Midazolam* 1 MG/ML 2 ML VIAL (2 MG) ONE ×2 (08:28→09:13)
[2017-10-20 09:54] VITALS: BP 126/85
[2017-10-20] MEDS ORDERED: acetaZOLAMIDE TAB* 250 MG ONE (15:35)
[2017-10-20] MEDS ORDERED: Cyclopentolate 1% OPTH.SOL* 2 ML BTL ONE (15:36)
[2017-10-20] MEDS ORDERED: Tetracaine 0.5% OPTH.SOL 4 ML* 1 DROP BTL ONE (15:36)
[2017-10-20] MEDS ORDERED: Neomycin/Polymy/Dex OPHTH.OIN* 3.5 GM ONE (15:36)
[2017-10-20] MEDS ORDERED: Ketorolac 0.5% OPHTH (NF) 0.5 % 5 ML BTL ONE (15:36)
[2017-10-20] MEDS ORDERED: Povidone Iodine 5% OPTH* 30 ML BTL ONE (15:36)
[2017-10-20] MEDS ORDERED: Tropicamide 1% OPTH.SOL* BTL ONE (15:36)
[2017-10-20] MEDS ORDERED: Lidocaine 1% MPF* 2 ML VIAL ONE (15:36)
[2017-10-20] MEDS ORDERED: Phenylephrine 2.5% OPTH.SOL* 2 ML BTL ONE (15:36)
--- NOTE | 2017-10-20 23:42 | OP ---
DATE OF OPERATION: 10/20/17 - [facility] DATE OF : 69 SURGEON: Andrei Monge MD ANESTHESIA: Monitored anesthesia care. PRE-OP DIAGNOSIS: Cataract, right eye. POST-OP DIAGNOSIS: Cataract, right eye. OPERATIVE PROCEDURE: Extracapsular cataract extraction of the right eye with intraocular lens implant. IMPLANTS: SN60WF 20.5 diopter lens to the right eye. COMPLICATIONS: None. DESCRIPTION OF PROCEDURE: The patient was given phenylephrine 2.5% with cyclopentolate 1% eye drops to the operative eye in the preoperative area. The patient was brought to the operating room where a time-out was taken to identify the correct patient, site and side of the surgery. The patient's right eye was prepped and draped in the usual sterile fashion with 5% Betadine. A second time- out was taken to verify the correct patient, site, and side of surgery, and correct lens selection. A lid speculum was placed to the right eye. A 1-mm paracentesis blade was used to make a clear corneal incision in the superotemporal position. Preservative-free 1% lidocaine was injected into the anterior chamber. DisCoVisc was then injected into the anterior chamber. A 2.75 mm keratome blade was used to make a triplanar incision at the inferotemporal position. A cystotome initiated a capsulorrhexis, which was completed with Utrata forceps in a continuous and curvilinear manner. Hydrodissection of the lens was performed with BSS on a cannula. The lens could be spun in the capsular bag. The phacoemulsification handpiece was used with a [id number] technique to remove the nucleus in its entirety with 18.64 CDE. The I/A handpiece then removed the residual cortical lens material. DisCoVisc was injected to inflate the capsular bag. The planned SN60WF 20.5 diopter lens was injected in the capsular bag. The residual DisCoVisc was removed from the eye with the I/A handpiece. The corneal incisions were hydrated and no leaks occurred at physiologic pressure around 20 mmHg per palpation. The lid speculum was removed and drapes removed. Maxitrol ointment was placed to the surface of the operative eye. An adhesive patch and shield was then placed on the operative eye. The patient was taken to the postoperative area in stable condition. [id number]/[facility] #: [id number] JAMES
== END 2017-10-20 09:48 | disposition home or self-care (01) ==
LOC: OREAST 07:39
PROVIDERS: ATTEND Student in an Organized Health Care Education/Training Program
DX: H25.811 Combined forms of age-related cataract, right eye (principal); H43.22 Crystalline deposits in vitreous body, left eye; I48.91 Unspecified atrial fibrillation; Z79.01 Long term (current) use of anticoagulants; R55 Syncope and collapse; F10.10 Alcohol abuse, uncomplicated
CPT/HCPCS: A9270-GY; J2250; V2632

== ENCOUNTER 2017-10-27 06:34 | Day surgery (SDC) | payer BC ==
[2017-10-27] MEDS ORDERED: fentaNYL* 50 MCG/ML 2 ML VIAL (100 MCG VIAL) ONE (07:13)
[2017-10-27] MEDS ORDERED: Midazolam* 1 MG/ML 5 ML VIAL (5 MG) ONE (07:14)
[2017-10-27] MEDS ORDERED: Tetracaine 0.5% OPTH.SOL 4 ML* 1 DROP BTL ONE (08:00)
[2017-10-27] MEDS ORDERED: Neomycin/Polymy/Dex OPHTH.OIN* 3.5 GM ONE (08:00)
[2017-10-27] MEDS ORDERED: Tropicamide 1% OPTH.SOL* BTL ONE (08:00)
[2017-10-27] MEDS ORDERED: Povidone Iodine 5% OPTH* 30 ML BTL ONE (08:00)
[2017-10-27] MEDS ORDERED: Lidocaine 1% MPF* 2 ML VIAL ONE (08:00)
[2017-10-27] MEDS ORDERED: Phenylephrine 2.5% OPTH.SOL* 2 ML BTL ONE (08:00)
[2017-10-27] MEDS ORDERED: acetaZOLAMIDE TAB* 250 MG ONE (08:00)
[2017-10-27] MEDS ORDERED: Ketorolac 0.5% OPHTH (NF) 0.5 % 5 ML BTL ONE (08:00)
[2017-10-27] MEDS ORDERED: Cyclopentolate 1% OPTH.SOL* 2 ML BTL ONE (08:00)
[2017-10-27 08:13] VITALS: BP 108/69
--- NOTE | 2017-10-27 23:36 | OP ---
DATE OF OPERATION: 10/27/17 - [facility] DATE OF : 69 SURGEON: Andrei Monge MD ANESTHESIA: Monitored anesthesia care. PRE-OP DIAGNOSIS: Cataract, left eye. POST-OP DIAGNOSIS: Cataract, left eye. OPERATIVE PROCEDURE: Extracapsular cataract extraction of the left eye with intraocular lens implant. IMPLANTS: SN60WF 20.5 diopter lens to left eye. COMPLICATIONS: None. DESCRIPTION OF PROCEDURE: The patient was given phenylephrine 2.5% and cyclopentolate 1% eye drops to the operative eye in the preoperative area. The patient was brought to the operating room where a time-out was taken to identify the correct patient, site and side of the surgery. The patient's left eye was prepped and draped in the usual sterile fashion with 5% Betadine. A second time-out was taken to verify the correct patient, site, and side of surgery, and correct lens selection. A lid speculum was placed to the left eye. A 1-mm paracentesis blade was used to make a clear corneal incision in the inferotemporal position. Preservative-free 1% lidocaine was injected into the anterior chamber. DisCoVisc was then injected into the anterior chamber. A 2.75-mm keratome blade was used to make a triplanar incision at the superotemporal position. A cystotome initiated a capsulorrhexis, which was completed with Utrata forceps in a continuous and curvilinear manner. Hydrodissection of the lens was performed with BSS on a cannula. The lens could be spun in the capsular bag. The phacoemulsification handpiece was used with a [id number] technique to remove the nucleus in its entirety with 5.68 CDE. The I/A handpiece then removed the residual cortical lens material. DisCoVisc was injected to inflate the capsular bag. The planned SN60WF 20.5 diopter lens was injected in the capsular bag. The residual DisCoVisc was removed from the eye with the I/A handpiece. The corneal incisions were hydrated and no leaks occurred at physiologic pressure around 20 mmHg per palpation. The lid speculum was removed and drapes removed. Maxitrol ointment was placed to the surface of the operative eye. An adhesive patch and shield was then placed on the operative eye. The patient was taken to the postoperative area in stable condition. [id number]/[facility] #: [id number] MTDD
== END 2017-10-27 08:14 | disposition home or self-care (01) ==
LOC: OREAST 06:34
PROVIDERS: ATTEND Student in an Organized Health Care Education/Training Program
DX: H25.812 Combined forms of age-related cataract, left eye (principal); H43.23 Crystalline deposits in vitreous body, bilateral; I48.91 Unspecified atrial fibrillation; Z79.01 Long term (current) use of anticoagulants; F10.21 Alcohol dependence, in remission
CPT/HCPCS: A9270-GY; J2250; J3010; V2632

== ENCOUNTER 2018-04-07 17:39 | Emergency (ER) | payer SELFPAY ==
[2018-04-07 20:13] LABS: ABS Basophils 0.2 10^3/ul (0-0.2); ABS Eosinophils 0.2 10^3/ul (0-0.6); ABS Lymphocytes 2.2 10^3/ul (1.0-4.8); ABS Monocytes 0.7 10^3/ul (0-0.8); ABS Neutrophils 2.9 10^3/ul (1.5-7.7); ABS Nucleated RBC 0 10^3/ul; Eosinophil % 3.1 % (0-6); Hematocrit 42 % (42-52); Hemoglobin 14.6 g/dl (14.0-18.0); Lymphocyte % 36.2 % (25-47); Mean Corpuscular HGB Conc 35 g/dl (31-36); Mean Corpuscular Hemoglobin 36 pg (27-31); Mean Corpuscular Volume 102 fL (80-94); Mean Platelet Volume 7.1 um3 (7.4-10.4); Nucleated Red Blood Cells % 0.1; Platelet Count 195 10^3/ul (150-450); Red Cell Distribution Width 13 % (10.5-15); White Blood Count 6.2 10^3/ul (3.5-10.8)
[2018-04-07 20:22] LABS: INR 0.91 (0.77-1.02)
[2018-04-07 20:30] LABS: EGFR Non-African American 121.4 (>60)
--- NOTE | 2018-04-07 23:51 | ED ---
Dizziness - HPI Summary HPI Summary: This is scribe Brian Stevens documenting for attending Toby Queen M.D. Patient is a 52 y/o M w/ c/o dizziness for the past four months. He characterizes dizziness as feeling "wobbly". However, on triage, it is stated he presents in ED for low blood pressure and denies chest pain, weakness, dizziness. When asked why he came into ED today for four month dizziness today, he states he, "has had enough of it". He states he has not seen any other doctor for the dizziness yet. Patient notes he drank alcohol in the morning today, drinks every day, and is an alcoholic. He also claims his steel pourer took him off of xarelto four day ago, "just because". On triage, pain is denied and nothing aggravates/alleviates Sx. Home medications and allergies are reviewed. I, Dr. Queen, personally performed the services described in this documentation as scribed in my presence and it is both accurate and complete. - History Of Current Complaint Chief Complaint: EDGeneral Stated Complaint: DIZZY/LOW BLOOD PRESSURE Time Seen by Provider: 04/07/18 19:48 Hx Obtained From: Patient Onset/Duration: Still Present - states dizziness in the room Timing: Weeks - past four months for dizziness Severity Currently: None - pain is denied Character: Dizzy - "wobbly" Aggravating Factor(s): Nothing Alleviating Factor(s): Nothing Associated Signs And Symptoms: Positive: Other: - POSITIVE: dizziness, low blood pressure NEGATIVE: weakness. Negative: Chest Pain - Allergies/Home Medications Allergies/Adverse Reactions: Allergies Allergy/AdvReac Type Severity Reaction Status Date / Time No Known Allergies Allergy Verified 10/27/17 06:40 PMH/Surg Hx/FS Hx/Imm Hx Endocrine/Hematology History: Denies: Hx Diabetes, Hx Thyroid Disease Cardiovascular History: Reports: Other Cardiovascular Problems/Disorders - Atrial Fibrillation, Syncopal Episodes Denies: Hx Hypertension Respiratory History: Reports: Hx Asthma - as an , none recent Denies: Other Respiratory Problems/Disorders GI History: Denies: Other GI Disorders History: Denies: Other Problems/Disorders Musculoskeletal History: Reports: Other Musculoskeletal History - Sees chiropractor twice a week for neck and back Sensory History: Reports: Hx Cataracts - Bilateral, Hx Contacts or Glasses Denies: Hx Hearing Aid, Hx Hearing Problem Opthamlomology History: Reports: Hx Cataracts - Bilateral, Hx Contacts or Glasses Neurological History: Reports: Other Neuro Impairments/Disorders - Syncopal Episodes Psychiatric History: Reports: Hx Depression - undiagnosed, patient reported, Hx Substance Abuse - alcohol Infectious Disease History: No Infectious Disease History: Denies: Hx Clostridium Difficile, Hx Hepatitis, Hx Human Immunodeficiency Virus (HIV), Hx of Known/Suspected MRSA, Hx Shingles, Hx Tuberculosis, Traveled Outside the [place] in Last 30 Days - Family History Known Family History: Positive: Hypertension, Diabetes - Social History Alcohol Use: Daily Alcohol Amount: 6-8 beers Substance Use Type: Reports: None Smoking Status (MU): Heavy Every Day Tobacco Smoker Type: Smokeless Tobacco Have You Smoked in the Last Year: No Review of Systems Negative: Fatigue Positive: Other - he reports low blood pressure but on vitals BP is 127/93. Negative: Chest Pain Neurological: Other - dizziness characterized as feeling "wobbly" All Other Systems Reviewed And Are Negative: Yes Physical Exam - Summary Physical Exam Summary: VITAL SIGNS: Reviewed. GENERAL: Patient is a well-developed and nourished male who is lying comfortable in the stretcher. Patient is not in any acute respiratory distress. HEAD AND FACE: No signs of trauma. No ecchymosis, hematomas or skull depressions. No sinus tenderness. EYES: PERRLA, EOMI x 2, No injected conjunctiva, no nystagmus. EARS: Hearing grossly intact. Ear canals and tympanic membranes are within normal limits. MOUTH: Oropharynx within normal limits. NECK: Supple, trachea is midline, no adenopathy, no JVD, no carotid bruit, no c- spine tenderness, neck with full ROM. CHEST: Symmetric, no tenderness at palpation LUNGS: Clear to auscultation bilaterally. No wheezing or crackles. CVS: irregular rate and rhythm, S1 and S2 present, no murmurs or gallops appreciated. ABDOMEN: Soft, non-tender. No signs of distention. No rebound no guarding, and no masses palpated. Bowel sounds are normal. EXTREMITIES: FROM in all major joints, no edema, no cyanosis or clubbing. NEURO: Alert and oriented x 3. No acute neurological deficits. Speech is normal and follows commands. SKIN: Dry and warm Triage Information Reviewed: Yes Vital Signs On Initial Exam: Initial Vitals Temp Pulse Resp BP Pulse Ox 98.6 F 80 18 127/93 97 04/07/18 17:44 04/07/18 17:44 04/07/18 17:44 04/07/18 17:44 04/07/18 17:44 Vital Signs Reviewed: Yes Diagnostics - Vital Signs Vital Signs Temp Pulse Resp BP Pulse Ox 04/07/18 23:05 90 15 104/70 100 04/07/18 23:00 90 16 99 04/07/18 22:35 94 14 95/63 96 04/07/18 22:05 90 12 93/68 95 04/07/18 22:00 82 13 96 04/07/18 21:35 91 10 101/78 94 04/07/18 21:05 88 13 110/83 89 04/07/18 21:00 93 15 96 04/07/18 20:36 13 97/74 04/07/18 20:05 14 124/90 04/07/18 20:00 84 25 98 04/07/18 19:35 86 18 128/89 95 04/07/18 17:44 98.6 F 80 18 127/93 97 - Laboratory Lab Results: Lab Results 04/07/18 04/07/18 04/07/18 Range/Units 20:04 20:04 20:04 WBC 6.2 (3.5-10.8) 10^3/ul RBC 4.10 (4.00-5.40) 10^6/ul Hgb 14.6 (14.0-18.0) g/dl Hct 42 (42-52) % MCV 102 H (80-94) fL MCH 36 H (27-31) pg MCHC 35 (31-36) g/dl RDW 13 (10.5-15) % Plt Count 195 (150-450) 10^3/ul MPV 7.1 L (7.4-10.4) um3 Neut % (Auto) 46.3 (38-83) % Lymph % (Auto) 36.2 (25-47) % [place] % (Auto) 11.6 H (0-7) % Eos % (Auto) 3.1 (0-6) % Baso % (Auto) 2.8 H (0-2) % Absolute Neuts (auto) 2.9 (1.5-7.7) 10^3/ul Absolute Lymphs (auto) 2.2 (1.0-4.8) 10^3/ul Absolute Monos (auto) 0.7 (0-0.8) 10^3/ul Absolute Eos (auto) 0.2 (0-0.6) 10^3/ul Absolute Basos (auto) 0.2 (0-0.2) 10^3/ul Absolute Nucleated RBC 0 10^3/ul Nucleated RBC % 0.1 INR (Anticoag Therapy) 0.91 (0.77-1.02) APTT 33.0 (26.0-36.3) seconds Sodium 130 L (135-145) mmol/L Potassium 4.3 (3.5-5.0) mmol/L Chloride 94 L (101-111) mmol/L Carbon Dioxide 29 (22-32) mmol/L Anion Gap 7 (2-11) mmol/L BUN 6 (6-24) mg/dL Creatinine 0.69 (0.67-1.17) mg/dL Est GFR ( Amer) 146.9 (>60) Est GFR (Non-Af Amer) 121.4 (>60) BUN/Creatinine Ratio 8.7 (8-20) Glucose 102 H (70-100) mg/dL Calcium 9.2 (8.6-10.3) mg/dL Magnesium 1.9 (1.9-2.7) mg/dL Total Bilirubin 1.10 H (0.2-1.0) mg/dL AST 67 H (13-39) U/L ALT 18 (7-52) U/L Alkaline Phosphatase 66 (34-104) U/L Troponin I 0.01 (<0.04) ng/mL Total Protein 7.4 (6.4-8.9) g/dL Albumin 3.5 (3.2-5.2) g/dL Globulin 3.9 (2-4) g/dL Albumin/Globulin Ratio 0.9 L (1-3) TSH 3.61 (0.34-5.60) mcIU/mL Serum Alcohol 430 H* (<10) mg/dL Result Diagrams: 04/07/18 20:04 04/07/18 20:04 Lab Statement: Any lab studies that have been ordered have been reviewed, and results considered in the medical decision making process. - EKG 2007 Cardiac Rate: NL - rate is 86 BPM. EKG Rhythm: Atrial Fibrillation EKG Interpretation: normal axis, no ischemic change Dizzy Course/Dx - Course Assessment/Plan: Patient is a 52 y/o M w/ c/o dizziness for the past four months. He characterizes dizziness as feeling "wobbly". However, on triage, it is stated he presents in ED for low blood pressure and denies chest pain, weakness, dizziness. When asked why he came into ED today for four month dizziness, he states he, "has had enough of it". He states he has not seen any other doctor for the dizziness yet. Patient notes he drank alcohol in the morning today, drinks every day, and is an alcoholic. He also claims his steel pourer took him off of xarelto four day ago, "just because". On triage, pain is denied and nothing aggravates/alleviates Sx. Home medications and allergies are reviewed. Physical exam showed irregular heart rhythm. EKG showed atrial fibrillation. Blood serum alcohol was 430. Patient was discharged to home with diagnosis of alcohol abuse, alcohol intoxication, and atrial fibrillation. He was advised to follow up with PCP in 1-2 days. Patient's sister -in-law picked patient up from hospital to drive patient home to his father. - Diagnoses Provider Diagnoses: Alcohol abuse, Alcohol intoxication, Atrial fibrillation Discharge - Sign-Out/Discharge Documenting (check all that apply): Patient Departure - discharge - Discharge Plan Condition: Stable Disposition: HOME Patient Education Materials: A-fib (Atrial Fibrillation) (ED), Alcohol Intoxication (ED), Abuse of Alcohol (ED) Referrals: Armando Jeffrey MD [Primary Care Provider] - 2 Days Additional Instructions: Follow up with primary care physician in 1-2 days. Return to ED for any changing or worsening symptoms.
[2018-04-08 00:02] VITALS: BP 129/88
== END 2018-04-08 00:04 | disposition home or self-care (01) ==
LOC: ED 17:39
DX: F10.129 Alcohol abuse with intoxication, unspecified (principal); Y90.8 Blood alcohol level of 240 mg/100 ml or more; I48.91 Unspecified atrial fibrillation; F17.200 Nicotine dependence, unspecified, uncomplicated
CPT/HCPCS: 36415; 80053; 80320; 83735; 84443; 84484; 85025; 85610; 85730; 93005; 99283; G0480

== ENCOUNTER 2020-09-21 12:25 | Inpatient (IN) ==
[2020-09-21] MEDS ORDERED: HYDROcodone/ACETAMIN 5/325 mg TAB PO ONE (14:31)
[2020-09-21] MEDS ORDERED: NS 0.9% 1000 ml BAG 1,000 ML IV ONE ×2 (14:33→14:36)
[2020-09-21] MEDS ORDERED: Diltiazem IV push/loading dose 5 MG/ML 5 ML vial (25 mg) IV SLOW PU ONE (15:26)
[2020-09-21 16:15] LABS: ABS Lymphocytes 1.3 10^3/ul (1.0-4.8); ABS Monocytes 0.3 10^3/ul (0-0.8); ABS Neutrophils 4.7 10^3/ul (1.5-7.7); Eosinophil % 0.7 %; Hematocrit 36 % (42-52); Hemoglobin 12.8 g/dL (14.0-18.0); Lymphocyte % 20.1 %; Mean Corpuscular HGB Conc 35 g/dL (31-36); Mean Corpuscular Hemoglobin 36 pg (27-31); Mean Corpuscular Volume 102 fL (80-94); Mean Platelet Volume 8.6 fL (7.4-10.4); Platelet Count 262 10^3/uL (150-450); Red Blood Count 3.57 10^6 /uL (4.18-5.48); Red Cell Distribution Width 15 % (10-15); White Blood Count 6.4 10^3/uL (3.5-10.8)
[2020-09-21 16:36] LABS: ALT 9 U/L (7-52); AST 20 U/L (13-39); Albumin 3.4 g/dL (3.2-5.2); Albumin/Globulin Ratio 0.8 (1-3); Alkaline Phosphatase 64 U/L (34-104); Anion Gap 11 mmol/L (2-11); BUN/Creatinine Ratio 10.5 (8-20); Blood Urea Nitrogen 6 mg/dL (6-24); C Reactive Protein 48.71 mg/L (<8.01); CO2 Carbon Dioxide 19 mmol/L (22-32); Calcium 9.1 mg/dL (8.6-10.3); Chloride 91 mmol/L (101-111); Creatine Kinase 27 U/L (10-223); EGFR African American 180.9 (>60); EGFR Non-African American 149.5 (>60); Globulin 4.1 g/dL (2-4); Glucose 86 mg/dL (70-100); Magnesium 1.8 mg/dL (1.9-2.7); Potassium 3.6 mmol/L (3.5-5.0); Sodium 121 mmol/L (135-145); Total Protein 7.5 g/dL (6.4-8.9)
[2020-09-21 17:12] LABS: TSH Ultra Thyroid Stim Horm 3.32 mcIU/mL (0.34-5.60)
[2020-09-21 17:23] LABS: Folate 7.61 ng/mL (>3.99)
[2020-09-21 17:24] LABS: Vitamin B12 1231 pg/mL (180-914)
[2020-09-21] MEDS ORDERED: NS 0.9% 1000 ml BAG 1,000 ML IV SCH (17:30)
[2020-09-21] MEDS ORDERED: Magnesium Sulfate 2 gm BAG 2 GM/50 ML BAG IVPB ONE (17:40)
[2020-09-21] MEDS ORDERED: Potassium Chlor 20 meq TAB.ER PO ONE (17:42)
[2020-09-21] MEDS ORDERED: Enoxaparin 40 MG/0.4 ML SYR SUBCUT SCH (18:00)
[2020-09-21] MEDS ORDERED: Morphine 2 MG/ML SYRINGE IV PRN (18:22)
[2020-09-21] MEDS ORDERED: Senna TAB 8.6 mg TAB PO PRN (18:25)
[2020-09-21 18:31] LABS: Indirect Bilirubin 1.2 mg/dL (0.3-1.0); Phosphorus 3.4 mg/dL (2.5-5.0)
[2020-09-21 19:00] LABS: Vitamin D Total 25(OH) 7.2 ng/mL (20-50)
[2020-09-21 19:47] LABS: Alcohol, S < 10 mg/dL (<10)
[2020-09-21] MEDS ORDERED: Gadoteridol (CONTRAST) 279.3 MG/ML 10 ML IV ONE (20:41)
[2020-09-21] MEDS: Aspirin EC 81 mg TAB.EC (enteric coated) PO SCH (21:49)
[2020-09-21 23:19] LABS: BUN/Creatinine Ratio 11.9 (8-20); Calcium 8.2 mg/dL (8.6-10.3); EGFR African American 173.9 (>60); EGFR Non-African American 143.7 (>60); Potassium 4.3 mmol/L (3.5-5.0)
[2020-09-22] MEDS ORDERED: NS 0.9% 1000 ml BAG 1,000 ML IV ONE (00:31)
[2020-09-22 00:58] LABS: Hematocrit 34 % (42-52); Hemoglobin 11.7 g/dL (14.0-18.0)
[2020-09-22 01:13] LABS: BUN/Creatinine Ratio 11.1 (8-20); Calcium 8.4 mg/dL (8.6-10.3); EGFR African American 138.2 (>60); EGFR Non-African American 114.2 (>60); Potassium 4.7 mmol/L (3.5-5.0)
[2020-09-22 04:38] LABS: ABS Monocytes 0.2 10^3/ul (0-0.8); ABS Neutrophils 3.1 10^3/ul (1.5-7.7); Eosinophil % 0.8 %; Hematocrit 30 % (42-52); Hemoglobin 10.5 g/dL (14.0-18.0); Lymphocyte % 22.8 %; Mean Corpuscular HGB Conc 35 g/dL (31-36); Mean Corpuscular Hemoglobin 36 pg (27-31); Mean Corpuscular Volume 103 fL (80-94); Mean Platelet Volume 7.8 fL (7.4-10.4); Platelet Count 215 10^3/uL (150-450); Red Blood Count 2.92 10^6 /uL (4.18-5.48); Red Cell Distribution Width 16 % (10-15); White Blood Count 4.4 10^3/uL (3.5-10.8)
[2020-09-22 04:46] LABS: INR 1.25 (0.82-1.09)
[2020-09-22 04:55] LABS: BUN/Creatinine Ratio 12.2 (8-20); C Reactive Protein 47.89 mg/L (<8.01); EGFR African American 133.9 (>60); EGFR Non-African American 110.6 (>60); Magnesium 2.2 mg/dL (1.9-2.7); Potassium 4.6 mmol/L (3.5-5.0)
[2020-09-22] MEDS ORDERED: Thiamine 100 MG/ML 2 ml VIAL (200 mg) IM ONE ×2 (07:42→11:41)
[2020-09-22] MEDS: Multivitamins/Minerals TAB PO SCH (09:02)
[2020-09-22] MEDS: Aspirin EC 81 mg TAB.EC (enteric coated) PO SCH (09:02)
[2020-09-22] MEDS ORDERED: Multivitamins/Minerals TAB PO SCH (12:00)
[2020-09-22] MEDS ORDERED: LORazepam 2 mg VIAL 1 ml IV PUSH SCH (12:00)
[2020-09-22] MEDS: Heparin 5000 UNITS/ML 1 mL VIAL SUBCUT SCH (23:03)
[2020-09-23] MEDS: Heparin 5000 UNITS/ML 1 mL VIAL SUBCUT SCH ×3 (05:39→21:32)
[2020-09-23 06:01] LABS: ABS Lymphocytes 1.2 10^3/ul (1.0-4.8); ABS Monocytes 0.3 10^3/ul (0-0.8); ABS Neutrophils 1.9 10^3/ul (1.5-7.7); Eosinophil % 1.1 %; Hematocrit 27 % (42-52); Hemoglobin 9.3 g/dL (14.0-18.0); Mean Corpuscular HGB Conc 35 g/dL (31-36); Mean Corpuscular Hemoglobin 36 pg (27-31); Mean Corpuscular Volume 103 fL (80-94); Mean Platelet Volume 7.6 fL (7.4-10.4); Platelet Count 171 10^3/uL (150-450); Red Cell Distribution Width 17 % (10-15); White Blood Count 3.6 10^3/uL (3.5-10.8)
[2020-09-23 06:19] LABS: BUN/Creatinine Ratio 14.8 (8-20); EGFR African American 192.6 (>60); EGFR Non-African American 159.2 (>60); Potassium 4.1 mmol/L (3.5-5.0)
[2020-09-23] MEDS: NS 0.9% 1000 ml BAG 1,000 ML IV SCH ×2 (10:15→23:14)
[2020-09-23] MEDS: Multivitamins/Minerals TAB PO SCH (10:16)
[2020-09-23] MEDS: Aspirin EC 81 mg TAB.EC (enteric coated) PO SCH (10:17)
[2020-09-24] MEDS: Heparin 5000 UNITS/ML 1 mL VIAL SUBCUT SCH ×3 (05:51→21:58)
[2020-09-24 06:04] LABS: ABS Lymphocytes 1.4 10^3/ul (1.0-4.8); ABS Monocytes 0.5 10^3/ul (0-0.8); ABS Neutrophils 1.4 10^3/ul (1.5-7.7); Eosinophil % 1.1 %; Hematocrit 23 % (42-52); Hemoglobin 8.2 g/dL (14.0-18.0); Lymphocyte % 40.9 %; Mean Corpuscular HGB Conc 35 g/dL (31-36); Mean Corpuscular Hemoglobin 36 pg (27-31); Mean Corpuscular Volume 104 fL (80-94); Platelet Count 153 10^3/uL (150-450); Red Blood Count 2.25 10^6 /uL (4.18-5.48); Red Cell Distribution Width 16 % (10-15); White Blood Count 3.4 10^3/uL (3.5-10.8)
[2020-09-24 06:24] LABS: Anion Gap 5 mmol/L (2-11); BUN/Creatinine Ratio 11.9 (8-20); Blood Urea Nitrogen 7 mg/dL (6-24); CO2 Carbon Dioxide 21 mmol/L (22-32); Calcium 8.2 mg/dL (8.6-10.3); Chloride 100 mmol/L (101-111); EGFR African American 173.9 (>60); EGFR Non-African American 143.7 (>60); Glucose 99 mg/dL (70-100); Potassium 4.5 mmol/L (3.5-5.0); Sodium 126 mmol/L (135-145)
[2020-09-24] MEDS: Aspirin EC 81 mg TAB.EC (enteric coated) PO SCH (08:04)
[2020-09-24] MEDS: Multivitamins/Minerals TAB PO SCH (08:04)
[2020-09-24 09:44] LABS: Corrected Retic Count 1.1 % (0.5-1.5); Hematocrit for Retic CNT 24 % (42-52); Immature Retic Fraction 0.41; RBC Retic Count 2.25 10^6/uL (4.18-5.48)
[2020-09-24 10:03] LABS: % Iron Saturation 38 % (15-55); Iron 71 ug/dL (50-212); LDH 105 U/L (140-271); Total Iron Binding Capacity 186 mcg/dL (250-450); Transferrin 133 mg/dL (203-362); Unsaturated Iron Binding < 171 ug/dL
[2020-09-24 10:25] LABS: Ferritin 387.9 ng/mL (24-336)
[2020-09-24] MEDS: NS 0.9% 1000 ml BAG 1,000 ML IV SCH (10:59)
[2020-09-24 12:54] LABS: Magnesium 1.6 mg/dL (1.9-2.7)
[2020-09-24] MEDS ORDERED: Magnesium Sulfate IV 3 GM in NS 0.9% 100 ml BAG 100 ML IVPB ONE (14:30)
[2020-09-25] MEDS: Heparin 5000 UNITS/ML 1 mL VIAL SUBCUT SCH ×3 (05:16→23:59)
[2020-09-25 06:23] LABS: ABS Lymphocytes 1.1 10^3/ul (1.0-4.8); ABS Monocytes 0.5 10^3/ul (0-0.8); ABS Neutrophils 1.1 10^3/ul (1.5-7.7); Eosinophil % 1.7 %; Hematocrit 24 % (42-52); Hemoglobin 8.5 g/dL (14.0-18.0); Mean Corpuscular HGB Conc 35 g/dL (31-36); Mean Corpuscular Hemoglobin 36 pg (27-31); Mean Corpuscular Volume 104 fL (80-94); Mean Platelet Volume 7.5 fL (7.4-10.4); Nucleated Red Blood Cells % 0.1; Platelet Count 155 10^3/uL (150-450); Red Blood Count 2.33 10^6 /uL (4.18-5.48); Red Cell Distribution Width 16 % (10-15); White Blood Count 2.7 10^3/uL (3.5-10.8)
[2020-09-25 06:45] LABS: BUN/Creatinine Ratio 8.2 (8-20); Calcium 8.7 mg/dL (8.6-10.3); EGFR African American 167.3 (>60); EGFR Non-African American 138.3 (>60); Magnesium 1.8 mg/dL (1.9-2.7); Potassium 4.7 mmol/L (3.5-5.0)
[2020-09-25] MEDS: Aspirin EC 81 mg TAB.EC (enteric coated) PO SCH (08:13)
[2020-09-25] MEDS: Multivitamins/Minerals TAB PO SCH (08:13)
[2020-09-25] MEDS ORDERED: Perflutren Lipid Microsphere 3 ML VIAL ONE (09:33)
[2020-09-25] MEDS ORDERED: Magnesium Sulfate 2 gm BAG 2 GM/50 ML BAG IVPB ONE (12:03)
[2020-09-25 17:17] LABS: Total Bilirubin 1.5 mg/dL (0.2-1.0)
[2020-09-25] MEDS ORDERED: Iohexol 300 (CONTRAST) 10 ML SDV IV ONE (22:04)
[2020-09-26 05:28] LABS: ABS Eosinophils 0.1 10^3/ul (0-0.6); ABS Lymphocytes 1.3 10^3/ul (1.0-4.8); ABS Monocytes 0.5 10^3/ul (0-0.8); ABS Neutrophils 1.5 10^3/ul (1.5-7.7); Eosinophil % 2.2 %; Hematocrit 23 % (42-52); Hemoglobin 8.3 g/dL (14.0-18.0); Lymphocyte % 37.7 %; Mean Corpuscular HGB Conc 35 g/dL (31-36); Mean Corpuscular Hemoglobin 37 pg (27-31); Mean Corpuscular Volume 104 fL (80-94); Platelet Count 145 10^3/uL (150-450); Red Blood Count 2.25 10^6 /uL (4.18-5.48); Red Cell Distribution Width 16 % (10-15); White Blood Count 3.4 10^3/uL (3.5-10.8)
[2020-09-26] MEDS: Heparin 5000 UNITS/ML 1 mL VIAL SUBCUT SCH ×3 (05:43→21:37)
[2020-09-26 05:52] LABS: BUN/Creatinine Ratio 9.4 (8-20); Calcium 8.6 mg/dL (8.6-10.3); EGFR African American 196.8 (>60); EGFR Non-African American 162.6 (>60); Magnesium 1.6 mg/dL (1.9-2.7); Potassium 4.5 mmol/L (3.5-5.0)
[2020-09-26 05:57] LABS: Digoxin 2.1 ng/ml (0.8-2.0)
[2020-09-26] MEDS ORDERED: Magnesium Sulfate 2 gm BAG 2 GM/50 ML BAG IVPB ONE (08:51)
[2020-09-26] MEDS: Multivitamins/Minerals TAB PO SCH (11:01)
[2020-09-26] MEDS: Aspirin EC 81 mg TAB.EC (enteric coated) PO SCH (12:38)
[2020-09-26 15:03] LABS: Immunoglobulin A 702 mg/dL (61 - 356); Immunoglobulin G 1210 mg/dL (767 - 1590); Immunoglobulin M 63 mg/dL (37 - 286)
[2020-09-26 17:44] LABS: Tissue Transglutaminase IgA Ab <1.2 U/mL
[2020-09-26 17:48] LABS: Beta 2 Microglobulin 1.84 mcg/mL
[2020-09-26 18:14] LABS: Kappa Free Light Chain 3.03 mg/dL; Lambda Free Light Chain 3.24 mg/dL
[2020-09-26 18:50] LABS: Albumin 2.2 g/dL (3.4-4.7); Albumin/Globulin Ratio 0.66; Gamma Globulin 1.4 g/dL (0.6-1.6); Total Protein(PEP) 5.6 g/dL (6.3 - 7.9)
[2020-09-26 21:07] LABS: Kappa Free Light Chain 3.28 mg/dL; Lambda Free Light Chain 3.48 mg/dL
[2020-09-27] MEDS: NS 0.9% 1000 ml BAG 1,000 ML IV SCH (03:15)
[2020-09-27 07:03] LABS: ABS Eosinophils 0.1 10^3/ul (0-0.6); ABS Lymphocytes 1.4 10^3/ul (1.0-4.8); ABS Monocytes 0.6 10^3/ul (0-0.8); ABS Neutrophils 1.5 10^3/ul (1.5-7.7); Eosinophil % 1.6 %; Hematocrit 25 % (42-52); Hemoglobin 8.5 g/dL (14.0-18.0); Lymphocyte % 38.2 %; Mean Corpuscular HGB Conc 35 g/dL (31-36); Mean Corpuscular Hemoglobin 37 pg (27-31); Mean Corpuscular Volume 105 fL (80-94); Mean Platelet Volume 8.1 fL (7.4-10.4); Platelet Count 155 10^3/uL (150-450); Red Blood Count 2.34 10^6 /uL (4.18-5.48); Red Cell Distribution Width 17 % (10-15); White Blood Count 3.6 10^3/uL (3.5-10.8)
[2020-09-27 07:24] LABS: Albumin 2.7 g/dL (3.2-5.2); Albumin/Globulin Ratio 0.8 (1-3); BUN/Creatinine Ratio 8.6 (8-20); Calcium 8.6 mg/dL (8.6-10.3); EGFR African American 177.3 (>60); EGFR Non-African American 146.6 (>60); Globulin 3.2 g/dL (2-4); Magnesium 1.7 mg/dL (1.9-2.7); Potassium 4.2 mmol/L (3.5-5.0); Total Bilirubin 1.3 mg/dL (0.2-1.0); Total Protein 5.9 g/dL (6.4-8.9)
[2020-09-27 09:00] LABS: Urine Appearance Clear; Urine Bacteria Absent (Absent); Urine Bilirubin Negative (Negative); Urine Blood Negative (Negative); Urine Color Amber; Urine Glucose Negative (Negative); Urine Ketones Negative (Negative); Urine Nitrite Negative (Negative); Urine Protein Negative (Negative); Urine Red Blood Cell Trace(0-2/hpf) (Absent); Urine Specific Gravity 1.012 (1.010-1.030); Urine Squamous Epithelial Cell Present (Absent); Urine Urobilinogen Positive (Negative); Urine White Blood Cell Trace(0-5/hpf) (Absent)
[2020-09-27] MEDS ORDERED: Magnesium Sulfate 2 gm BAG 2 GM/50 ML BAG IVPB ONE (09:08)
[2020-09-27] MEDS: Aspirin EC 81 mg TAB.EC (enteric coated) PO SCH (09:59)
[2020-09-27] MEDS: Multivitamins/Minerals TAB PO SCH (10:00)
[2020-09-27 16:55] LABS: Albumin 2.3 g/dL (3.4-4.7); Albumin/Globulin Ratio 0.74; Gamma Globulin 1.4 g/dL (0.6-1.6); Total Protein(PEP) 5.5 g/dL (6.3 - 7.9)
[2020-09-27 18:58] LABS: Albumin 57 %; Albumin/Globulin Ratio 1.33 %; Gamma Globulin 17 %; Total Protein(PEP) Urine 19 mg/dL
[2020-09-27] MEDS ORDERED: Ondansetron 4 mg VIAL 2 MG/ML 2 ml VIAL IV PRN (19:40)
[2020-09-28] MEDS: NS 0.9% 1000 ml BAG 1,000 ML IV SCH (04:12)
[2020-09-28 07:32] LABS: ABS Lymphocytes 1.1 10^3/ul (1.0-4.8); ABS Monocytes 0.6 10^3/ul (0-0.8); ABS Neutrophils 1.7 10^3/ul (1.5-7.7); Eosinophil % 1.1 %; Hematocrit 27 % (42-52); Hemoglobin 9.5 g/dL (14.0-18.0); Lymphocyte % 32.3 %; Mean Corpuscular HGB Conc 35 g/dL (31-36); Mean Corpuscular Hemoglobin 36 pg (27-31); Mean Corpuscular Volume 104 fL (80-94); Mean Platelet Volume 7.9 fL (7.4-10.4); Nucleated Red Blood Cells % 0.1; Platelet Count 162 10^3/uL (150-450); Red Blood Count 2.61 10^6 /uL (4.18-5.48); Red Cell Distribution Width 19 % (10-15); White Blood Count 3.5 10^3/uL (3.5-10.8)
[2020-09-28 07:47] LABS: Activated Partial Thrombo Time 31.3 seconds (26.0-38.0); INR 1.24 (0.82-1.09)
[2020-09-28] MEDS: Multivitamins/Minerals TAB PO SCH (09:14)
[2020-09-28 09:32] LABS: BUN/Creatinine Ratio 8.3 (8-20); Calcium 8.7 mg/dL (8.6-10.3); EGFR African American 170.5 (>60); EGFR Non-African American 140.9 (>60); Magnesium 1.8 mg/dL (1.9-2.7); Potassium 4.3 mmol/L (3.5-5.0)
[2020-09-28] MEDS ORDERED: NS 0.9% 1000 ml BAG 1,000 ML IV ONE (10:07)
[2020-09-28 15:37] LABS: BUN/Creatinine Ratio 11.7 (8-20); Calcium 8.4 mg/dL (8.6-10.3); EGFR African American 170.5 (>60); EGFR Non-African American 140.9 (>60); Potassium 4.3 mmol/L (3.5-5.0)
[2020-09-28] MEDS: Enoxaparin 40 MG/0.4 ML SYR SUBCUT SCH (18:03)
[2020-09-29] MEDS ORDERED: Nicotine Lozenge mini 4 MG LOZNG.MINI MT PRN (03:44)
[2020-09-29 04:24] LABS: ABS Eosinophils 0.1 10^3/ul (0-0.6); ABS Lymphocytes 1.4 10^3/ul (1.0-4.8); ABS Monocytes 0.8 10^3/ul (0-0.8); Eosinophil % 1.4 %; Hematocrit 30 % (42-52); Hemoglobin 10.5 g/dL (14.0-18.0); Lymphocyte % 32.7 %; Mean Corpuscular HGB Conc 35 g/dL (31-36); Mean Corpuscular Hemoglobin 36 pg (27-31); Mean Corpuscular Volume 102 fL (80-94); Mean Platelet Volume 7.7 fL (7.4-10.4); Platelet Count 181 10^3/uL (150-450); Red Blood Count 2.93 10^6 /uL (4.18-5.48); Red Cell Distribution Width 18 % (10-15); White Blood Count 4.3 10^3/uL (3.5-10.8)
[2020-09-29 04:52] LABS: Digoxin 0.8 ng/ml (0.8-2.0)
[2020-09-29 05:31] LABS: Albumin 2.8 g/dL (3.2-5.2); Albumin/Globulin Ratio 0.8 (1-3); BUN/Creatinine Ratio 11.3 (8-20); Calcium 8.6 mg/dL (8.6-10.3); EGFR African American 164.2 (>60); EGFR Non-African American 135.7 (>60); Globulin 3.3 g/dL (2-4); Magnesium 1.7 mg/dL (1.9-2.7); Potassium 4.2 mmol/L (3.5-5.0); Total Bilirubin 1.3 mg/dL (0.2-1.0); Total Protein 6.1 g/dL (6.4-8.9)
[2020-09-29] MEDS ORDERED: Lactated Ringers 1000 ml BAG 1,000 ML IV SCH (06:00)
[2020-09-29] MEDS ORDERED: Buffered Lidocaine 1% SYRIN 1 ml INTRADERM ONE (06:00)
[2020-09-29] MEDS: Multivitamins/Minerals TAB PO SCH (10:02)
[2020-09-29] MEDS: Enoxaparin 40 MG/0.4 ML SYR SUBCUT SCH (17:03)
[2020-09-30] MEDS: Multivitamins/Minerals TAB PO SCH (09:53)
[2020-09-30] MEDS: Enoxaparin 40 MG/0.4 ML SYR SUBCUT SCH (16:24)
[2020-10-01 07:35] LABS: ABS Eosinophils 0.1 10^3/ul (0-0.6); ABS Lymphocytes 1.1 10^3/ul (1.0-4.8); ABS Monocytes 0.8 10^3/ul (0-0.8); Eosinophil % 1.4 %; Hematocrit 34 % (42-52); Hemoglobin 11.6 g/dL (14.0-18.0); Lymphocyte % 28.7 %; Mean Corpuscular HGB Conc 35 g/dL (31-36); Mean Corpuscular Hemoglobin 36 pg (27-31); Mean Corpuscular Volume 103 fL (80-94); Mean Platelet Volume 7.7 fL (7.4-10.4); Nucleated Red Blood Cells % 0.1; Platelet Count 248 10^3/uL (150-450); Red Blood Count 3.26 10^6 /uL (4.18-5.48); Red Cell Distribution Width 18 % (10-15)
[2020-10-01 07:53] LABS: Calcium 9.3 mg/dL (8.6-10.3); EGFR African American 170.5 (>60); EGFR Non-African American 140.9 (>60); Magnesium 1.6 mg/dL (1.9-2.7)
[2020-10-01] MEDS ORDERED: Magnesium Sulfate 2 gm BAG 2 GM/50 ML BAG IVPB ONE (08:11)
[2020-10-01] MEDS: Multivitamins/Minerals TAB PO SCH (08:29)
[2020-10-01] MEDS: Enoxaparin 40 MG/0.4 ML SYR SUBCUT SCH (17:47)
[2020-10-02] MEDS: Multivitamins/Minerals TAB PO SCH (08:07)
[2020-10-02] MEDS: Enoxaparin 40 MG/0.4 ML SYR SUBCUT SCH (16:07)
[2020-10-03 07:43] LABS: ABS Basophils 0.1 10^3/ul (0-0.2); ABS Eosinophils 0.1 10^3/ul (0-0.6); ABS Lymphocytes 1.2 10^3/ul (1.0-4.8); ABS Monocytes 0.8 10^3/ul (0-0.8); ABS Neutrophils 1.9 10^3/ul (1.5-7.7); Eosinophil % 1.9 %; Hematocrit 37 % (42-52); Hemoglobin 12.5 g/dL (14.0-18.0); Lymphocyte % 29.8 %; Mean Corpuscular HGB Conc 34 g/dL (31-36); Mean Corpuscular Hemoglobin 35 pg (27-31); Mean Corpuscular Volume 104 fL (80-94); Mean Platelet Volume 7.4 fL (7.4-10.4); Nucleated Red Blood Cells % 0.1; Platelet Count 291 10^3/uL (150-450); Red Blood Count 3.53 10^6 /uL (4.18-5.48); Red Cell Distribution Width 19 % (10-15)
[2020-10-03 07:59] LABS: BUN/Creatinine Ratio 17.1 (8-20); Calcium 9.4 mg/dL (8.6-10.3); EGFR African American 142.7 (>60); Magnesium 1.7 mg/dL (1.9-2.7); Potassium 4.1 mmol/L (3.5-5.0)
[2020-10-03 08:06] LABS: Activated Partial Thrombo Time 30.9 seconds (26.0-38.0); INR 1.17 (0.82-1.09)
[2020-10-03 08:13] LABS: Digoxin 0.6 ng/ml (0.8-2.0)
[2020-10-03] MEDS ORDERED: Magnesium Sulfate 2 gm BAG 2 GM/50 ML BAG IVPB ONE (08:38)
[2020-10-03] MEDS: Multivitamins/Minerals TAB PO SCH (08:51)
[2020-10-04] MEDS ORDERED: Buffered Lidocaine 1% SYRIN 1 ml INTRADERM ONE ×2 (06:00→06:53)
[2020-10-04 06:02] LABS: BUN/Creatinine Ratio 18.6 (8-20); Calcium 9.1 mg/dL (8.6-10.3); EGFR African American 173.9 (>60); EGFR Non-African American 143.7 (>60); Magnesium 1.8 mg/dL (1.9-2.7); Potassium 4.2 mmol/L (3.5-5.0)
[2020-10-04] MEDS ORDERED: Lidocaine 1% w EPI 1:200,000 SDV 30 ML VIAL ONE (07:08)
[2020-10-04] MEDS ORDERED: Bacitracin INJECTION 50,000 UNITS ONE (07:08)
[2020-10-04] MEDS ORDERED: Bupivacaine 0.25% SDV 30 ML ONE (07:08)
[2020-10-04] MEDS ORDERED: Succinylcholine 200 mg VIAL 20 mg/ml 10 ml VIAL (200 mg) ONE (07:20)
[2020-10-04] MEDS ORDERED: Propofol 10 MG/ML 20 ML BTL ONE (07:20)
[2020-10-04] MEDS ORDERED: Remifentanil 2 MG VIAL ONE (07:21)
[2020-10-04] MEDS ORDERED: fentaNYL 250 mcg/5 ml 50 MCG/ML 5 ml VIAL (250 MCG) ONE (07:32)
[2020-10-04] MEDS ORDERED: Midazolam 5 mg/5 ml VIAL 1 mg/ml 5 ml VIAL (5 mg) ONE (07:32)
[2020-10-04] MEDS ORDERED: Midazolam 2 mg/2 ml VIAL 1 mg/ml 2 ml VIAL (2 mg) ONE (07:40)
[2020-10-04] MEDS ORDERED: Dexmedetomidine 200 mcg/2 ml 2 ml VIAL (200 mcg) ONE (07:40)
[2020-10-04] MEDS ORDERED: ROPIVACAINE 5 MG/ML 30 ML BTL (0.5%) ONE (07:40)
[2020-10-04] MEDS ORDERED: Lidocaine 2% PF 5 ML VIAL ONE (07:40)
[2020-10-04] MEDS ORDERED: ceFAZolin 2 GM PREMIX 2 GM/50 ML BAG ONE (07:52)
[2020-10-04] MEDS ORDERED: Rocuronium 50 mg VIAL 10 mg/ml 5 ml VIAL (50 mg) ONE (09:12)
[2020-10-04] MEDS ORDERED: Naloxone 0.4 mg VIAL 0.4 mg/ml 1 ml VIAL IV PRN (09:35)
[2020-10-04] MEDS ORDERED: DiMENhydriNATE IV 50 mg/ml 1 ml VIAL IV PUSH PRN (09:35)
[2020-10-04] MEDS ORDERED: EPHEDrine (Pressors) 50 MG/ML VIAL ONE (10:24)
[2020-10-04] MEDS ORDERED: Glycopyrrolate IV 0.2 MG/ML 1 ML VIAL ONE (10:26)
[2020-10-04] MEDS ORDERED: Esmolol 10 MG/ML 10 ML (100 mg) ONE (10:36)
[2020-10-04] MEDS ORDERED: Dexamethasone IV 4 MG/ML VIAL 1 ml VIAL ONE (10:43)
[2020-10-04] MEDS ORDERED: Ondansetron 4 mg VIAL 2 MG/ML 2 ml VIAL ONE (10:45)
[2020-10-04] MEDS ORDERED: Propofol 1,000 MG/100 ML BTL ONE (11:12)
[2020-10-04] MEDS ORDERED: fentaNYL 100 mcg/2 ml 50 MCG/ML VIAL ONE (13:03)
[2020-10-04] MEDS: fentaNYL 100 mcg/2 ml 50 MCG/ML VIAL IV PRN ×2 (13:04→13:30)
[2020-10-04] MEDS: Lactated Ringers 1000 ml BAG 1,000 ML IV SCH (14:48)
[2020-10-04] MEDS: Multivitamins/Minerals TAB PO SCH (14:49)
[2020-10-04] MEDS ORDERED: Morphine 2 MG/ML SYRINGE IV PRN (16:57)
[2020-10-04] MEDS: Polyethylene Glycol 3350 17 GM PACKET PO PRN (17:04)
[2020-10-04] MEDS: Magnesium Hydroxide LIQ 30 ML UDC PO PRN (22:29)
[2020-10-05] MEDS: Lactated Ringers 1000 ml BAG 1,000 ML IV SCH (04:07)
[2020-10-05 06:23] LABS: Hematocrit 36 % (42-52); Hemoglobin 12.4 g/dL (14.0-18.0); Mean Corpuscular HGB Conc 35 g/dL (31-36); Mean Corpuscular Hemoglobin 36 pg (27-31); Mean Corpuscular Volume 104 fL (80-94); Mean Platelet Volume 7.9 fL (7.4-10.4); Platelet Count 312 10^3/uL (150-450); Red Blood Count 3.43 10^6 /uL (4.18-5.48); Red Cell Distribution Width 18 % (10-15); White Blood Count 9.9 10^3/uL (3.5-10.8)
[2020-10-05 06:41] LABS: BUN/Creatinine Ratio 21.7 (8-20); Calcium 9.3 mg/dL (8.6-10.3); EGFR African American 170.5 (>60); EGFR Non-African American 140.9 (>60); Magnesium 1.7 mg/dL (1.9-2.7)
[2020-10-05] MEDS: HYDROcodone/ACETAMIN 5/325 mg TAB PO PRN (08:06)
[2020-10-05] MEDS: Magnesium Hydroxide LIQ 30 ML UDC PO PRN (09:07)
[2020-10-05] MEDS: Multivitamins/Minerals TAB PO SCH (09:07)
[2020-10-05] MEDS: Enoxaparin 40 MG/0.4 ML SYR SUBCUT SCH (09:10)
[2020-10-05] MEDS ORDERED: Magnesium Sulfate IV 1GM/100ML 1 GM/100 ML BAG IV ONE (10:50)
[2020-10-05] MEDS: Polyethylene Glycol 3350 17 GM PACKET PO PRN (16:54)
[2020-10-06] MEDS: HYDROcodone/ACETAMIN 5/325 mg TAB PO PRN ×3 (03:47→21:33)
[2020-10-06 06:13] LABS: BUN/Creatinine Ratio 31.5 (8-20); Calcium 8.9 mg/dL (8.6-10.3); EGFR African American 192.6 (>60); EGFR Non-African American 159.2 (>60); Potassium 3.9 mmol/L (3.5-5.0)
[2020-10-06] MEDS: Multivitamins/Minerals TAB PO SCH (09:42)
[2020-10-06] MEDS: Enoxaparin 40 MG/0.4 ML SYR SUBCUT SCH (09:42)
[2020-10-06] MEDS ORDERED: NS 0.9% 500 ml BAG 500 ML IV ONE (11:44)
[2020-10-06] MEDS: Magnesium Hydroxide LIQ 30 ML UDC PO SCH (21:33)
[2020-10-07] MEDS: Magnesium Hydroxide LIQ 30 ML UDC PO SCH ×2 (09:16→21:27)
[2020-10-07] MEDS: Enoxaparin 40 MG/0.4 ML SYR SUBCUT SCH (09:16)
[2020-10-07] MEDS: HYDROcodone/ACETAMIN 5/325 mg TAB PO PRN ×3 (09:17→21:27)
[2020-10-07] MEDS: Multivitamins/Minerals TAB PO SCH (10:36)
[2020-10-08] MEDS: Multivitamins/Minerals TAB PO SCH (09:40)
[2020-10-08] MEDS: Enoxaparin 40 MG/0.4 ML SYR SUBCUT SCH (09:41)
[2020-10-08] MEDS: Magnesium Hydroxide LIQ 30 ML UDC PO SCH ×2 (09:41→21:13)
[2020-10-08] MEDS: HYDROcodone/ACETAMIN 5/325 mg TAB PO PRN ×2 (09:43→17:46)
[2020-10-09] MEDS: Multivitamins/Minerals TAB PO SCH (10:30)
[2020-10-09] MEDS: Enoxaparin 40 MG/0.4 ML SYR SUBCUT SCH (10:31)
[2020-10-09] MEDS: Magnesium Hydroxide LIQ 30 ML UDC PO SCH ×2 (10:31→20:51)
[2020-10-10] MEDS: Magnesium Hydroxide LIQ 30 ML UDC PO SCH ×2 (07:53→20:34)
[2020-10-10] MEDS: Multivitamins/Minerals TAB PO SCH (07:54)
[2020-10-10] MEDS: Enoxaparin 40 MG/0.4 ML SYR SUBCUT SCH (07:54)
[2020-10-10] MEDS: HYDROcodone/ACETAMIN 5/325 mg TAB PO PRN ×2 (16:40→23:32)
[2020-10-11 07:48] VITALS: BP 122/75
[2020-10-11] MEDS: Multivitamins/Minerals TAB PO SCH (08:35)
[2020-10-11] MEDS: Enoxaparin 40 MG/0.4 ML SYR SUBCUT SCH (08:37)
[2020-10-11] MEDS: Magnesium Hydroxide LIQ 30 ML UDC PO SCH (08:37)
== END 2020-10-11 10:40 | DRG 304 ==
LOC: ED 12:25 → MEDTELE 19:54 → SSU 10-03 06:00
PROVIDERS: ADMIT Hospitalist; ATTEND Internal Medicine

== ENCOUNTER 2022-06-19 05:50 | Inpatient (IN) ==
[2022-06-19] MEDS ORDERED: Lactated Ringers 1000 ml BAG 1,000 ML IV ONE (06:04)
[2022-06-19 06:21] LABS: ABS Eosinophils 0.1 10^3/ul (0-0.6); ABS Lymphocytes 0.8 10^3/ul (1.0-4.8); ABS Monocytes 1.3 10^3/ul (0-0.8); ABS Neutrophils 8.6 10^3/ul (1.5-7.7); Hematocrit 41 % (42-52); Hemoglobin 14.7 g/dL (14.0-18.0); Lymphocyte % 7.2 %; Mean Corpuscular HGB Conc 36 g/dL (31-36); Mean Corpuscular Hemoglobin 37 pg (27-31); Mean Corpuscular Volume 104 fL (80-94); Mean Platelet Volume 7.2 fL (7.4-10.4); Platelet Count 200 10^3/uL (150-450); Red Blood Count 3.97 10^6 /uL (4.18-5.48); Red Cell Distribution Width 13 % (10-15); White Blood Count 10.9 10^3/uL (3.5-10.8)
[2022-06-19] MEDS ORDERED: Clindamycin 600 MG/D5W BAG 600 MG/50 ML BAG IV ONE (07:12)
[2022-06-19 07:16] LABS: ALT 24 U/L (7-52); AST 54 U/L (13-39); Albumin 3.5 g/dL (3.2-5.2); Alcohol, S < 13 mg/dL (<13); Alkaline Phosphatase 81 U/L (35-149); Blood Urea Nitrogen 5 mg/dL (6-24); CO2 Carbon Dioxide 24 mmol/L (22-32); Calcium 8.8 mg/dL (8.6-10.3); Chloride 82 mmol/L (101-111); Globulin 3.4 g/dL (2-4); Glucose 81 mg/dL (70-100); Magnesium 1.4 mg/dL (1.9-2.7); Potassium 3.8 mmol/L (3.5-5.0); Total Protein 6.9 g/dL (6.4-8.9); eGFR CKD-EPI 112.5 (>60)
[2022-06-19 07:20] LABS: Anion Gap 13 mmol/L (2-11); Sodium 119 mmol/L (135-145)
[2022-06-19] MEDS ORDERED: Thiamine 100 MG/ML 2 ml VIAL 100 MG, Folic Acid IV 1 MG, Multiple Vitamin IV ADULT 10 M... IV ONE (07:30)
[2022-06-19] MEDS ORDERED: NS 0.9% 1000 ml BAG 1,000 ML IV ONE (07:44)
[2022-06-19] MEDS ORDERED: dilTIAZem 30 MG TAB PO ONE (07:51)
[2022-06-19 08:24] LABS: INR 1.11 (0.89-1.11)
[2022-06-19 08:39] LABS: Calcium 8.8 mg/dL (8.6-10.3); Potassium 3.5 mmol/L (3.5-5.0)
[2022-06-19 08:45] LABS: eGFR CKD-EPI 111.5 (>60)
[2022-06-19 09:26] LABS: Vitamin B12 1168 pg/mL (180-914)
[2022-06-19] MEDS ORDERED: Magnesium Sulfate 2 gm BAG 2 GM/50 ML BAG IVPB ONE (10:02)
[2022-06-19 10:39] LABS: C Reactive Protein 20.85 mg/L (<8.01)
[2022-06-19 12:21] LABS: Blood Urea Nitrogen 5 mg/dL (6-24); CO2 Carbon Dioxide 25 mmol/L (22-32); Chloride 86 mmol/L (101-111); Glucose 95 mg/dL (70-100); Sodium 120 mmol/L (135-145)
[2022-06-19 12:22] LABS: eGFR CKD-EPI 118.4 (>60)
[2022-06-19 12:25] LABS: Anion Gap 9 mmol/L (2-11)
[2022-06-19] MEDS ORDERED: Thiamine 100 MG/ML 2 ml VIAL (200 mg) IM ONE (12:59)
[2022-06-19] MEDS ORDERED: Lorazepam PYXIS KEY PRN (13:17)
[2022-06-19] MEDS: DOXYcycline 100 MG in NS 0.9% 250 ml 250 ML IVPB SCH (14:27)
[2022-06-19 14:28] LABS: Osmolality Serum 254 mOsm/kg (275-295)
[2022-06-19] MEDS: NS 0.9% 1000 ml BAG 1,000 ML IV SCH (15:15)
[2022-06-19] MEDS: Heparin 5000 UNITS/ML 1 mL VIAL SUBCUT SCH ×2 (15:15→22:42)
[2022-06-19] MEDS ORDERED: Metoprolol Tartrate 5 mg VIAL 5 ml VIAL (1 mg/ml) IV PRN (16:42)
[2022-06-19 17:24] LABS: Urine Osmo 393 mOsm/kg (150-1150)
[2022-06-19 17:44] LABS: Free T4 1.12 ng/dL (0.61-1.12)
[2022-06-19 17:45] LABS: Total T3 130 ng/dL (87-178)
[2022-06-19 18:00] LABS: Blood Urea Nitrogen 6 mg/dL (6-24); CO2 Carbon Dioxide 23 mmol/L (22-32); Calcium 7.8 mg/dL (8.6-10.3); Chloride 89 mmol/L (101-111); Glucose 102 mg/dL (70-100); Sodium 120 mmol/L (135-145); eGFR CKD-EPI 115.9 (>60)
[2022-06-19 18:03] LABS: Anion Gap 8 mmol/L (2-11)
[2022-06-19 21:26] LABS: Calcium 8.2 mg/dL (8.6-10.3); Potassium 3.8 mmol/L (3.5-5.0); eGFR CKD-EPI 115.3 (>60)
[2022-06-19] MEDS: Nystatin TOP POWDER 15 GM BTL TOPICAL SCH (22:23)
[2022-06-20] MEDS: NS 0.9% 1000 ml BAG 1,000 ML IV SCH ×2 (01:13→15:04)
[2022-06-20] MEDS: DOXYcycline 100 MG in NS 0.9% 250 ml 250 ML IVPB SCH ×2 (01:26→15:05)
[2022-06-20] MEDS: Heparin 5000 UNITS/ML 1 mL VIAL SUBCUT SCH ×2 (05:16→12:59)
[2022-06-20] MEDS: Nystatin TOP POWDER 15 GM BTL TOPICAL SCH ×3 (05:40→15:05)
[2022-06-20 07:12] LABS: ABS Basophils 0.1 10^3/ul (0-0.2); ABS Eosinophils 0.2 10^3/ul (0-0.6); ABS Neutrophils 4.1 10^3/ul (1.5-7.7); Eosinophil % 2.8 %; Hematocrit 35 % (42-52); Hemoglobin 12.6 g/dL (14.0-18.0); Lymphocyte % 16.4 %; Mean Corpuscular HGB Conc 36 g/dL (31-36); Mean Corpuscular Hemoglobin 37 pg (27-31); Mean Corpuscular Volume 105 fL (80-94); Nucleated Red Blood Cells % 0.1; Platelet Count 169 10^3/uL (150-450); Red Blood Count 3.38 10^6 /uL (4.18-5.48); Red Cell Distribution Width 13 % (10-15); White Blood Count 6.3 10^3/uL (3.5-10.8)
[2022-06-20 07:27] LABS: Albumin 3.2 g/dL (3.2-5.2); Albumin/Globulin Ratio 1.1 (1-3); C Reactive Protein 20.5 mg/L (<8.01); Calcium 8.2 mg/dL (8.6-10.3); Globulin 2.9 g/dL (2-4); Potassium 3.6 mmol/L (3.5-5.0); Total Bilirubin 2.8 mg/dL (0.2-1.0); Total Protein 6.1 g/dL (6.4-8.9); eGFR CKD-EPI 117.8 (>60)
[2022-06-20] MEDS: Multivitamins/Minerals TAB PO SCH (08:26)
[2022-06-20 08:48] LABS: Magnesium 1.6 mg/dL (1.9-2.7)
[2022-06-20] MEDS: Metoprolol Tartrate 5 mg VIAL 5 ml VIAL (1 mg/ml) IV PRN ×3 (09:56→21:56)
[2022-06-20] MEDS ORDERED: Magnesium Sulfate 2 gm BAG 2 GM/50 ML BAG IVPB ONE (15:52)
[2022-06-20 16:06] LABS: Calcium 8.4 mg/dL (8.6-10.3); Potassium 3.9 mmol/L (3.5-5.0); eGFR CKD-EPI 117.8 (>60)
[2022-06-20] MEDS: LORazepam 2 mg VIAL 1 ml IV PUSH SCH ×3 (16:43→22:02)
[2022-06-20] MEDS ORDERED: LORazepam 2 mg VIAL 1 ml IV PUSH ONE ×5 (18:05→23:54)
[2022-06-20] MEDS ORDERED: Lorazepam PYXIS KEY PRN ×5 (18:05→23:52)
[2022-06-20] MEDS ORDERED: KCL 20 MEQ/100 ML IVPREMIX 20 MEQ/100 ML BAG ONE (21:49)
[2022-06-20] MEDS ORDERED: Magnesium Sulfate 2 gm BAG 2 GM/50 ML BAG ONE (22:57)
[2022-06-20] MEDS ORDERED: diazePAM INJ CARPUJECT 5 MG/ML SYRINGE ONE (23:28)
[2022-06-20 23:53] LABS: Hematocrit 37 % (42-52); Hemoglobin 12.7 g/dL (14.0-18.0); Mean Corpuscular HGB Conc 34 g/dL (31-36); Mean Corpuscular Hemoglobin 36 pg (27-31); Mean Corpuscular Volume 105 fL (80-94); Mean Platelet Volume 7.7 fL (7.4-10.4); Platelet Count 190 10^3/uL (150-450); Red Blood Count 3.52 10^6 /uL (4.18-5.48); Red Cell Distribution Width 13 % (10-15); White Blood Count 8.8 10^3/uL (3.5-10.8)
[2022-06-20] MEDS ORDERED: LORazepam 2 mg VIAL 1 ml ONE (23:55)
[2022-06-21 00:29] LABS: Albumin 3.4 g/dL (3.2-5.2); Albumin/Globulin Ratio 1.1 (1-3); Calcium 8.7 mg/dL (8.6-10.3); Globulin 3.1 g/dL (2-4); Magnesium 1.5 mg/dL (1.9-2.7); Potassium 4.1 mmol/L (3.5-5.0); Total Bilirubin 2.3 mg/dL (0.2-1.0); Total Protein 6.5 g/dL (6.4-8.9)
[2022-06-21] MEDS: Heparin 5000 UNITS/ML 1 mL VIAL SUBCUT SCH ×3 (00:58→21:43)
[2022-06-21] MEDS ORDERED: NS 0.9% 500 ml BAG 500 ML IV SCH (01:00)
[2022-06-21] MEDS ORDERED: NS 0.9% 1000 ml BAG 1,000 ML IV ONE (01:18)
[2022-06-21] MEDS ORDERED: NS 0.9% 500 ml BAG 500 ML IV ONE (01:37)
[2022-06-21 02:24] LABS: Phosphorus 2.2 mg/dL (2.5-5.0)
[2022-06-21] MEDS: Nystatin TOP POWDER 15 GM BTL TOPICAL SCH ×4 (02:38→21:43)
[2022-06-21] MEDS ORDERED: NS 0.9% 1000 ml BAG 1,000 ML IV SCH (03:45)
[2022-06-21] MEDS: DOXYcycline 100 MG in NS 0.9% 250 ml 250 ML IVPB SCH ×2 (03:49→17:44)
[2022-06-21 09:23] LABS: ABS Basophils 0.1 10^3/ul (0-0.2); ABS Eosinophils 0.2 10^3/ul (0-0.6); ABS Lymphocytes 1.1 10^3/ul (1.0-4.8); ABS Monocytes 1.1 10^3/ul (0-0.8); ABS Neutrophils 2.6 10^3/ul (1.5-7.7); Eosinophil % 3.3 %; Hematocrit 31 % (42-52); Hemoglobin 10.8 g/dL (14.0-18.0); Lymphocyte % 21.6 %; Mean Corpuscular HGB Conc 35 g/dL (31-36); Mean Corpuscular Hemoglobin 36 pg (27-31); Mean Corpuscular Volume 105 fL (80-94); Mean Platelet Volume 7.4 fL (7.4-10.4); Platelet Count 155 10^3/uL (150-450); Red Blood Count 2.98 10^6 /uL (4.18-5.48); Red Cell Distribution Width 13 % (10-15); White Blood Count 5.1 10^3/uL (3.5-10.8)
[2022-06-21 09:56] LABS: Ascorbic Acid Level <0.1 mg/dL (0.4 - 2.0)
[2022-06-21 10:01] LABS: Albumin 2.9 g/dL (3.2-5.2); Albumin/Globulin Ratio 1.1 (1-3); Direct Bilirubin 0.5 mg/dL (0.03-0.18); Globulin 2.6 g/dL (2-4); Indirect Bilirubin 0.9 mg/dL (0.3-1.0); Magnesium 1.7 mg/dL (1.9-2.7); Potassium 3.4 mmol/L (3.5-5.0); Total Bilirubin 1.4 mg/dL (0.2-1.0); Total Protein 5.5 g/dL (6.4-8.9); eGFR CKD-EPI 115.9 (>60)
[2022-06-21] MEDS ORDERED: Lorazepam PYXIS KEY ONE ×3 (12:43→22:25)
[2022-06-21] MEDS: LORazepam 2 mg VIAL 1 ml IV PUSH SCH ×3 (12:48→22:31)
[2022-06-21] MEDS: Multivitamins/Minerals TAB PO SCH (12:49)
[2022-06-21] MEDS: NS 0.9% IVPB SCH ×2 (12:51→21:41)
[2022-06-21] MEDS: ACYCLOVIR IVPB SCH ×2 (12:51→21:41)
[2022-06-21] MEDS ORDERED: Thiamine 100 MG/ML 2 ml VIAL 500 MG in NS 0.9% 250 ml 250 ML IV ONE (16:53)
[2022-06-21] MEDS: Potassium Chlor 20 meq TAB.ER PO ONE ×2 (21:42→22:09)
[2022-06-22] MEDS: DOXYcycline 100 MG in NS 0.9% 250 ml 250 ML IVPB SCH ×2 (00:42→14:17)
[2022-06-22] MEDS ORDERED: Lorazepam PYXIS KEY ONE ×5 (01:13→22:05)
[2022-06-22] MEDS: LORazepam 2 mg VIAL 1 ml IV PUSH SCH ×6 (01:18→22:13)
[2022-06-22] MEDS: ACYCLOVIR IVPB SCH ×3 (03:19→19:58)
[2022-06-22] MEDS: NS 0.9% IVPB SCH ×3 (03:19→19:58)
[2022-06-22] MEDS: Heparin 5000 UNITS/ML 1 mL VIAL SUBCUT SCH ×3 (06:07→21:07)
[2022-06-22 07:39] LABS: Hematocrit 35 % (42-52); Mean Corpuscular HGB Conc 34 g/dL (31-36); Mean Corpuscular Hemoglobin 37 pg (27-31); Mean Corpuscular Volume 107 fL (80-94); Mean Platelet Volume 7.5 fL (7.4-10.4); Platelet Count 167 10^3/uL (150-450); Red Blood Count 3.29 10^6 /uL (4.18-5.48); Red Cell Distribution Width 13 % (10-15); White Blood Count 6.9 10^3/uL (3.5-10.8)
[2022-06-22 07:43] LABS: INR 1.21 (0.89-1.11)
[2022-06-22 08:09] LABS: Albumin 3.3 g/dL (3.2-5.2); CO2 Carbon Dioxide 23 mmol/L (22-32); Calcium 8.4 mg/dL (8.6-10.3); Chloride 95 mmol/L (101-111); Magnesium 1.7 mg/dL (1.9-2.7); Sodium 128 mmol/L (135-145)
[2022-06-22 08:15] LABS: ALT 18 U/L (7-52); Albumin/Globulin Ratio 1.1 (1-3); Alkaline Phosphatase 69 U/L (35-149); Blood Urea Nitrogen 4 mg/dL (6-24); Globulin 2.9 g/dL (2-4); Glucose 95 mg/dL (70-100); Total Protein 6.2 g/dL (6.4-8.9); eGFR CKD-EPI 118.4 (>60)
[2022-06-22 08:22] LABS: Anion Gap 10 mmol/L (2-11)
[2022-06-22 08:57] LABS: ABS Basophils 0.1 10^3/ul (0-0.2); ABS Eosinophils 0.2 10^3/ul (0-0.6); ABS Lymphocytes 1.1 10^3/ul (1.0-4.8); ABS Monocytes 1.8 10^3/ul (0-0.8); ABS Neutrophils 3.8 10^3/ul (1.5-7.7); Eosinophil % 2.9 %; Lymphocyte % 15.3 %
[2022-06-22] MEDS ORDERED: Magnesium Sulfate 2 gm BAG 2 GM/50 ML BAG IVPB ONE (09:06)
[2022-06-22] MEDS: Multivitamins/Minerals TAB PO SCH (09:43)
[2022-06-22] MEDS: Nystatin TOP POWDER 15 GM BTL TOPICAL SCH ×3 (09:43→21:07)
[2022-06-22 09:55] LABS: Potassium Redraw 3.6 mmol/L (3.5-5.0)
[2022-06-22] MEDS: Thiamine 100 MG/ML 2 ml VIAL 500 MG in NS 0.9% 250 ml 250 ML IV SCH ×2 (11:17→22:31)
[2022-06-22 12:08] LABS: Zinc, S 40 mcg/dL (60-106)
[2022-06-22] MEDS ORDERED: Prochlorperazine 5 mg/ml 2 ml VIAL (10 mg) IV ONE (20:57)
[2022-06-23] MEDS: DOXYcycline 100 MG in NS 0.9% 250 ml 250 ML IVPB SCH ×2 (00:43→14:03)
[2022-06-23] MEDS ORDERED: Lorazepam PYXIS KEY ONE ×5 (01:39→09:20)
[2022-06-23] MEDS: LORazepam 2 mg VIAL 1 ml IV PUSH SCH ×4 (01:43→10:16)
[2022-06-23] MEDS: Metoprolol Tartrate 5 mg VIAL 5 ml VIAL (1 mg/ml) IV PRN ×2 (02:33→09:30)
[2022-06-23] MEDS: ACYCLOVIR IVPB SCH ×3 (04:00→21:02)
[2022-06-23] MEDS: NS 0.9% IVPB SCH ×3 (04:00→21:02)
[2022-06-23] MEDS: Heparin 5000 UNITS/ML 1 mL VIAL SUBCUT SCH ×3 (05:14→21:04)
[2022-06-23 07:14] LABS: ABS Basophils 0.1 10^3/ul (0-0.2); ABS Eosinophils 0.2 10^3/ul (0-0.6); ABS Lymphocytes 1.4 10^3/ul (1.0-4.8); ABS Neutrophils 4.5 10^3/ul (1.5-7.7); Eosinophil % 2.1 %; Hematocrit 35 % (42-52); Hemoglobin 11.9 g/dL (14.0-18.0); Lymphocyte % 17.5 %; Mean Corpuscular HGB Conc 34 g/dL (31-36); Mean Corpuscular Hemoglobin 36 pg (27-31); Mean Corpuscular Volume 106 fL (80-94); Mean Platelet Volume 7.6 fL (7.4-10.4); Platelet Count 195 10^3/uL (150-450); Red Blood Count 3.29 10^6 /uL (4.18-5.48); Red Cell Distribution Width 14 % (10-15); White Blood Count 8.1 10^3/uL (3.5-10.8)
[2022-06-23 07:37] LABS: ALT 16 U/L (7-52); Albumin 3.1 g/dL (3.2-5.2); Alkaline Phosphatase 66 U/L (35-149); Blood Urea Nitrogen 3 mg/dL (6-24); CO2 Carbon Dioxide 26 mmol/L (22-32); Calcium 8.5 mg/dL (8.6-10.3); Chloride 93 mmol/L (101-111); Globulin 3.2 g/dL (2-4); Glucose 76 mg/dL (70-100); Sodium 129 mmol/L (135-145); Total Protein 6.3 g/dL (6.4-8.9); eGFR CKD-EPI 121.2 (>60)
[2022-06-23 07:44] LABS: Anion Gap 10 mmol/L (2-11)
[2022-06-23] MEDS: Multivitamins/Minerals TAB PO SCH (07:59)
[2022-06-23] MEDS: Thiamine 100 MG/ML 2 ml VIAL 500 MG in NS 0.9% 250 ml 250 ML IV SCH ×2 (08:03→23:09)
[2022-06-23] MEDS: Nystatin TOP POWDER 15 GM BTL TOPICAL SCH ×3 (08:18→23:56)
[2022-06-23] MEDS ORDERED: Albuterol 2.5mg/3 ml (0.083%) NEB.SOLN INH ONE (10:19)
[2022-06-23] MEDS ORDERED: Albuterol 2.5mg/3 ml (0.083%) NEB.SOLN INH PRN (10:19)
[2022-06-23 11:12] LABS: Potassium Redraw 3.4 mmol/L (3.5-5.0)
[2022-06-24] MEDS: DOXYcycline 100 MG in NS 0.9% 250 ml 250 ML IVPB SCH ×2 (02:12→14:01)
[2022-06-24] MEDS: NS 0.9% IVPB SCH ×2 (04:00→12:24)
[2022-06-24] MEDS: ACYCLOVIR IVPB SCH ×2 (04:00→12:24)
[2022-06-24] MEDS: Heparin 5000 UNITS/ML 1 mL VIAL SUBCUT SCH ×3 (05:29→22:35)
[2022-06-24] MEDS: LORazepam 2 mg VIAL 1 ml IV PUSH SCH ×4 (05:30→23:53)
[2022-06-24 07:36] LABS: ABS Basophils 0.1 10^3/ul (0-0.2); ABS Eosinophils 0.3 10^3/ul (0-0.6); ABS Lymphocytes 1.4 10^3/ul (1.0-4.8); ABS Monocytes 1.6 10^3/ul (0-0.8); ABS Neutrophils 3.9 10^3/ul (1.5-7.7); Eosinophil % 3.4 %; Hematocrit 34 % (42-52); Mean Corpuscular HGB Conc 35 g/dL (31-36); Mean Corpuscular Hemoglobin 37 pg (27-31); Mean Corpuscular Volume 106 fL (80-94); Mean Platelet Volume 7.7 fL (7.4-10.4); Platelet Count 214 10^3/uL (150-450); Red Blood Count 3.25 10^6 /uL (4.18-5.48); Red Cell Distribution Width 13 % (10-15); White Blood Count 7.3 10^3/uL (3.5-10.8)
[2022-06-24 07:45] LABS: Calcium 8.5 mg/dL (8.6-10.3); Potassium 3.4 mmol/L (3.5-5.0); eGFR CKD-EPI 124.3 (>60)
[2022-06-24] MEDS: Nystatin TOP POWDER 15 GM BTL TOPICAL SCH ×3 (09:40→22:37)
[2022-06-24] MEDS: Thiamine 100 MG/ML 2 ml VIAL 500 MG in NS 0.9% 250 ml 250 ML IV SCH (09:40)
[2022-06-24] MEDS: Multivitamins/Minerals TAB PO SCH (09:47)
[2022-06-24] MEDS ORDERED: Albuterol 2.5mg/3 ml (0.083%) NEB.SOLN INH ONE (09:50)
[2022-06-24] MEDS ORDERED: Benzocaine/Menthol LOZ MT PRN (09:57)
[2022-06-24] MEDS ORDERED: Gadoteridol (CONTRAST) 279.3 MG/ML 10 ML IV ONE (13:48)
[2022-06-24 14:47] LABS: Varicella Zoster Result Negative (Negative); Varicella Zoster Source FACE; Varicella Zoster Source LIPS
[2022-06-24] MEDS ORDERED: Lorazepam PYXIS KEY ONE (16:54)
[2022-06-24] MEDS ORDERED: Lorazepam PYXIS KEY PRN (23:49)
[2022-06-25] LABS: HSV 1,PCR Negative (Negative); HSV 2, PCR Negative (Negative); Specimen Source FACE; Specimen Source LIPS
[2022-06-25] MEDS: LORazepam 2 mg VIAL 1 ml IV PUSH SCH ×3 (03:46→09:58)
[2022-06-25] MEDS: Heparin 5000 UNITS/ML 1 mL VIAL SUBCUT SCH ×3 (05:31→20:55)
[2022-06-25 08:52] LABS: ABS Basophils 0.1 10^3/ul (0-0.2); ABS Eosinophils 0.2 10^3/ul (0-0.6); ABS Lymphocytes 1.7 10^3/ul (1.0-4.8); ABS Monocytes 1.4 10^3/ul (0-0.8); ABS Neutrophils 3.9 10^3/ul (1.5-7.7); Eosinophil % 2.8 %; Hematocrit 35 % (42-52); Hemoglobin 12.3 g/dL (14.0-18.0); Lymphocyte % 23.1 %; Mean Corpuscular HGB Conc 35 g/dL (31-36); Mean Corpuscular Hemoglobin 37 pg (27-31); Mean Corpuscular Volume 105 fL (80-94); Mean Platelet Volume 7.5 fL (7.4-10.4); Platelet Count 259 10^3/uL (150-450); Red Blood Count 3.36 10^6 /uL (4.18-5.48); Red Cell Distribution Width 14 % (10-15); White Blood Count 7.2 10^3/uL (3.5-10.8)
[2022-06-25 09:15] LABS: Albumin 3.2 g/dL (3.2-5.2); Calcium 8.9 mg/dL (8.6-10.3); Globulin 3.2 g/dL (2-4); Magnesium 1.5 mg/dL (1.9-2.7); Potassium 3.7 mmol/L (3.5-5.0); Total Bilirubin 1.3 mg/dL (0.2-1.0); Total Protein 6.4 g/dL (6.4-8.9); eGFR CKD-EPI 124.3 (>60)
[2022-06-25] MEDS: Multivitamins/Minerals TAB PO SCH (09:59)
[2022-06-25] MEDS: Nystatin TOP POWDER 15 GM BTL TOPICAL SCH ×2 (10:00→14:24)
[2022-06-25] MEDS ORDERED: Magnesium Sulfate IV 3 GM in NS 0.9% 100 ml BAG 100 ML IVPB ONE (18:19)
[2022-06-25] MEDS ORDERED: Potassium Chlor 20 meq TAB.ER PO ONE (18:20)
[2022-06-25] MEDS: CMCS: Ketoconazole 2 % CREAM (NF) 30 GM TUBE TOPICAL SCH (20:58)
[2022-06-25 23:27] LABS: Pyridoxal 5-Phosphate (PLP), P 10 mcg/L (5-50)
[2022-06-26] MEDS: Heparin 5000 UNITS/ML 1 mL VIAL SUBCUT SCH ×3 (06:03→21:33)
[2022-06-26 06:12] LABS: ABS Basophils 0.1 10^3/ul (0-0.2); ABS Eosinophils 0.1 10^3/ul (0-0.6); ABS Lymphocytes 1.5 10^3/ul (1.0-4.8); ABS Monocytes 1.3 10^3/ul (0-0.8); ABS Neutrophils 3.1 10^3/ul (1.5-7.7); Eosinophil % 2.4 %; Hematocrit 38 % (42-52); Hemoglobin 13.1 g/dL (14.0-18.0); Lymphocyte % 24.3 %; Mean Corpuscular HGB Conc 34 g/dL (31-36); Mean Corpuscular Hemoglobin 36 pg (27-31); Mean Corpuscular Volume 105 fL (80-94); Nucleated Red Blood Cells % 0.1; Platelet Count 275 10^3/uL (150-450); Red Blood Count 3.63 10^6 /uL (4.18-5.48); Red Cell Distribution Width 14 % (10-15); White Blood Count 6.1 10^3/uL (3.5-10.8)
[2022-06-26 06:40] LABS: Calcium 8.9 mg/dL (8.6-10.3); Magnesium 1.9 mg/dL (1.9-2.7); eGFR CKD-EPI 123.5 (>60)
[2022-06-26] MEDS: CMCS: Ketoconazole 2 % CREAM (NF) 30 GM TUBE TOPICAL SCH ×2 (09:43→21:34)
[2022-06-26] MEDS: Multivitamins/Minerals TAB PO SCH (09:43)
[2022-06-26] MEDS ORDERED: Albuterol HFA INHALER 8 gm MDI INH PRN (13:22)
[2022-06-27] MEDS: Heparin 5000 UNITS/ML 1 mL VIAL SUBCUT SCH ×3 (05:29→21:27)
[2022-06-27] MEDS: CMCS: Ketoconazole 2 % CREAM (NF) 30 GM TUBE TOPICAL SCH ×2 (08:35→21:27)
[2022-06-27] MEDS: Multivitamins/Minerals TAB PO SCH (08:35)
[2022-06-27] MEDS ORDERED: COVID VACC, MONOVAL PFIZER-TRIS 30 MCG/0.3 ML SYR IM ONE (14:30)
[2022-06-28] MEDS: Heparin 5000 UNITS/ML 1 mL VIAL SUBCUT SCH ×3 (06:18→21:10)
[2022-06-28 06:42] LABS: ABS Basophils 0.2 10^3/ul (0-0.2); ABS Eosinophils 0.2 10^3/ul (0-0.6); ABS Lymphocytes 1.9 10^3/ul (1.0-4.8); ABS Monocytes 1.1 10^3/ul (0-0.8); ABS Neutrophils 3.7 10^3/ul (1.5-7.7); Eosinophil % 2.7 %; Hematocrit 39 % (42-52); Hemoglobin 13.4 g/dL (14.0-18.0); Lymphocyte % 26.6 %; Mean Corpuscular HGB Conc 35 g/dL (31-36); Mean Corpuscular Hemoglobin 37 pg (27-31); Mean Corpuscular Volume 106 fL (80-94); Mean Platelet Volume 7.6 fL (7.4-10.4); Platelet Count 338 10^3/uL (150-450); Red Blood Count 3.62 10^6 /uL (4.18-5.48); Red Cell Distribution Width 14 % (10-15); White Blood Count 7.2 10^3/uL (3.5-10.8)
[2022-06-28 07:05] LABS: Albumin 3.2 g/dL (3.2-5.2); Albumin/Globulin Ratio 0.9 (1-3); Calcium 9.3 mg/dL (8.6-10.3); Globulin 3.4 g/dL (2-4); Magnesium 1.6 mg/dL (1.9-2.7); Total Bilirubin 1.3 mg/dL (0.2-1.0); Total Protein 6.6 g/dL (6.4-8.9)
[2022-06-28] MEDS ORDERED: Magnesium Sulfate 2 gm BAG 2 GM/50 ML BAG IVPB ONE (07:35)
[2022-06-28] MEDS: CMCS: Ketoconazole 2 % CREAM (NF) 30 GM TUBE TOPICAL SCH ×2 (08:59→21:11)
[2022-06-28] MEDS: Multivitamins/Minerals TAB PO SCH (08:59)
[2022-06-28] MEDS ORDERED: Lidocaine 1% MPF 5 ML VIAL INJ ONE (17:00)
[2022-06-29] MEDS: Heparin 5000 UNITS/ML 1 mL VIAL SUBCUT SCH ×3 (05:29→20:17)
[2022-06-29] MEDS: Multivitamins/Minerals TAB PO SCH (09:36)
[2022-06-29] MEDS: CMCS: Ketoconazole 2 % CREAM (NF) 30 GM TUBE TOPICAL SCH ×2 (09:39→20:21)
[2022-06-29] MEDS ORDERED: Magnesium Sulfate 2 gm BAG 2 GM/50 ML BAG IVPB ONE (17:11)
[2022-06-30] MEDS: Heparin 5000 UNITS/ML 1 mL VIAL SUBCUT SCH ×3 (06:29→16:52)
[2022-06-30] MEDS: Multivitamins/Minerals TAB PO SCH (09:19)
[2022-06-30] MEDS: CMCS: Ketoconazole 2 % CREAM (NF) 30 GM TUBE TOPICAL SCH ×2 (09:20→21:19)
[2022-07-01] MEDS: Heparin 5000 UNITS/ML 1 mL VIAL SUBCUT SCH ×2 (02:21→08:49)
[2022-07-01] MEDS: Multivitamins/Minerals TAB PO SCH (08:50)
[2022-07-01] MEDS: CMCS: Ketoconazole 2 % CREAM (NF) 30 GM TUBE TOPICAL SCH (08:52)
[2022-07-01 17:47] VITALS: BP 117/69
== END 2022-07-01 14:30 | disposition home or self-care (01) | DRG 385 ==
LOC: ED 05:50 → EDHOLD 05:50 → SUATTDRO 12:15 → OBSVTOIN 12:15 → SUATTDRO 12:30 → MEDTELE 21:18
PROVIDERS: ADMIT Internal Medicine; ATTEND Hospitalist

== ENCOUNTER 2022-07-19 16:12 | Observation (INO) ==
[2022-07-19 17:32] LABS: ALT 15 U/L (7-52); Albumin 4.2 g/dL (3.2-5.2); Albumin/Globulin Ratio 1.2 (1-3); Alkaline Phosphatase 75 U/L (35-149); Blood Urea Nitrogen 4 mg/dL (6-24); CO2 Carbon Dioxide 19 mmol/L (22-32); Chloride 89 mmol/L (101-111); Globulin 3.6 g/dL (2-4); Glucose 99 mg/dL (70-100); Total Protein 7.8 g/dL (6.4-8.9); eGFR CKD-EPI 118.4 (>60)
[2022-07-19 17:45] LABS: Sodium 119 mmol/L (135-145)
[2022-07-19 17:46] LABS: INR 1.1 (0.89-1.11)
[2022-07-19 17:48] LABS: Anion Gap 11 mmol/L (2-11)
[2022-07-19 18:14] LABS: ABS Eosinophils 0.1 10^3/ul (0-0.6); ABS Lymphocytes 1.8 10^3/ul (1.0-4.8); ABS Monocytes 1.1 10^3/ul (0-0.8); ABS Neutrophils 9.8 10^3/ul (1.5-7.7); Eosinophil % 0.7 %; Hematocrit 43 % (42-52); Hemoglobin 14.4 g/dL (14.0-18.0); Lymphocyte % 13.8 %; Mean Corpuscular HGB Conc 34 g/dL (31-36); Mean Corpuscular Hemoglobin 35 pg (27-31); Mean Corpuscular Volume 103 fL (80-94); Mean Platelet Volume 7.5 fL (7.4-10.4); Platelet Count 227 10^3/uL (150-450); Red Blood Count 4.16 10^6 /uL (4.18-5.48); Red Cell Distribution Width 14 % (10-15); White Blood Count 12.8 10^3/uL (3.5-10.8)
[2022-07-19 18:22] LABS: Potassium Redraw 3.6 mmol/L (3.5-5.0)
[2022-07-19 20:01] LABS: High Sensitivity Troponin 1 Hr 7 pg/mL (<20)
[2022-07-19 20:43] LABS: Urine Osmo 196 mOsm/kg (150-1150)
[2022-07-19 20:53] LABS: Osmolality Serum 303 mOsm/kg (275-295)
[2022-07-19 21:20] LABS: TSH Ultra Thyroid Stim Horm 5.95 mcIU/mL (0.34-5.60)
[2022-07-19] MEDS ORDERED: NS 0.9% 1000 ml BAG 1,000 ML IV ONE (21:35)
[2022-07-19 21:58] LABS: Alcohol, S 187 mg/dL (<13)
[2022-07-19 22:16] LABS: Free T4 0.96 ng/dL (0.61-1.12)
[2022-07-19 22:24] LABS: Vitamin B12 > 1450 pg/mL (180-914)
[2022-07-19 23:42] LABS: Calcium 8.4 mg/dL (8.6-10.3); Potassium 3.7 mmol/L (3.5-5.0); eGFR CKD-EPI 114.1 (>60)
[2022-07-20 04:58] LABS: ABS Basophils 0.1 10^3/ul (0-0.2); ABS Eosinophils 0.2 10^3/ul (0-0.6); ABS Lymphocytes 1.9 10^3/ul (1.0-4.8); ABS Neutrophils 5.1 10^3/ul (1.5-7.7); Eosinophil % 2.3 %; Hematocrit 39 % (42-52); Hemoglobin 13.5 g/dL (14.0-18.0); Lymphocyte % 22.8 %; Mean Corpuscular HGB Conc 34 g/dL (31-36); Mean Corpuscular Hemoglobin 35 pg (27-31); Mean Corpuscular Volume 102 fL (80-94); Mean Platelet Volume 7.9 fL (7.4-10.4); Platelet Count 184 10^3/uL (150-450); Red Blood Count 3.85 10^6 /uL (4.18-5.48); Red Cell Distribution Width 14 % (10-15); White Blood Count 8.3 10^3/uL (3.5-10.8)
[2022-07-20 05:44] LABS: Calcium 8.9 mg/dL (8.6-10.3); Potassium 3.9 mmol/L (3.5-5.0); eGFR CKD-EPI 112.9 (>60)
[2022-07-20] MEDS ORDERED: Aspirin EC 81 mg TAB.EC (enteric coated) PO SCH (09:00)
[2022-07-20] MEDS ORDERED: Enoxaparin 40 MG/0.4 ML SYR SUBCUT SCH (09:00)
[2022-07-20] MEDS ORDERED: Multivitamins/Minerals TAB PO SCH (09:00)
[2022-07-20 16:17] VITALS: BP 118/82
[2022-07-20 16:52] LABS: Calcium 9.4 mg/dL (8.6-10.3)
== END 2022-07-20 18:00 | disposition home or self-care (01) ==
LOC: ED 16:12 → EDHOLD 16:12 → SUATTDRO 20:44 → EDHOLD 07-20 08:26 → MEDTELE 07-20 09:01
PROVIDERS: ADMIT Student in an Organized Health Care Education/Training Program; ATTEND Hospitalist